=== PATIENT | female | born 1935 | race Caucasian/White ===

== ENCOUNTER 2020-03-25 09:58 | Inpatient (IN) | payer MEDICARE ==
[~2020-03-25] VITALS: Ht 162.6 cm; Wt 104.3 kg
[2020-03-25 10:31] LABS: BASOPHILS % 0.2 % (0.0-1.0); EOSINOPHILS % 0.1 % (0.0-6.0); HEMATOCRIT 40.2 % (34.2-44.1); LYMPHOCYTES # (AUTO) 0.7 (1.0-3.2); LYMPHOCYTES % 6.7 % (18.0-39.1); MEAN CORPUSCULAR HEMOGLOBIN 30.4 pg (28-32); MEAN CORPUSCULAR HGB CONC 34.8 g/dL (31-35); MEAN CORPUSCULAR VOLUME 87.2 fL (81-99); MONOCYTES # (AUTO) 0.6 (0.2-0.8); MONOCYTES % 5.8 % (4.4-11.3); NEUTROPHILS # (AUTO) 8.9 (2.1-6.9); NEUTROPHILS % 86.2 % (38.7-80.0); PLATELET COUNT 387 x10e3/uL (140-360); RED BLOOD COUNT 4.61 x10e6/uL (3.6-5.1); RED CELL DISTRIBUTION WIDTH 13.6 % (11.7-14.4)
[2020-03-25 10:56] LABS: INR 0.94
[2020-03-25 10:57] LABS: PARTIAL THROMBOPLASTIN TIME 31.1 seconds (23.8-35.5)
[2020-03-25 11:06] LABS: ALBUMIN 2.3 g/dL (3.5-5.0); ALBUMIN/GLOBULIN RATIO 0.5 (0.8-2.0); ANION GAP 17.8 mmol/L (8-16); CALCIUM 8.7 mg/dL (8.4-10.2); CREATININE, SERUM 0.94 mg/dL (0.57-1.11); MAGNESIUM 1.7 MG/DL (1.3-2.1); POTASSIUM 4.8 mmol/L (3.5-5.1)
[2020-03-25 11:15] LABS: CREATINE KINASE MB 4.7 ng/mL (0-5.0)
[2020-03-25] MEDS ORDERED: SODIUM CHLORIDE 0.9% 500ML 500 ML IV ONE (11:15)
[2020-03-25] MEDS ORDERED: DEXAMETHASONE SOD PHOS 10 MG/1 ML VIAL ONE (11:18)
[2020-03-25] MEDS: DEXAMETHASONE SOD PHOS 10 MG/1 ML VIAL IV SCH (11:29)
[2020-03-25] MEDS: CEFTRIAXONE SOD 1 GM/NS 50 ML 50 ML IV SCH (11:33)
[2020-03-25] MEDS: AZITHROMYCIN 500MG/NS 250 ML 250 ML IV SCH (11:36)
[2020-03-25] MEDS ORDERED: DEXTROSE 50% SYRINGE 50 ML IV PRN (11:45)
[2020-03-25] MEDS ORDERED: ONDANSETRON HCL INJ 2MG/ML 2ML 2 MG/ML VIAL IV PRN (13:15)
[2020-03-25] MEDS ORDERED: REMDESIVIR 200MG/NS 100ML 200 MG in SODIUM CHLORIDE 0.9% 100 ML 100 ML IV ONE (14:00)
[2020-03-25 14:22] LABS: CLARITY,URINE SL CLOUDY (CLEAR); COLOR,URINE YELLOW (YELLOW); KETONES,URINE NEGATIVE (NEGATIVE); LEUKOCYTE ESTERASE ,URINE NEGATIVE (NEGATIVE); NITRITE,URINE NEGATIVE (NEGATIVE); PROTEIN,URINE DIPSTICK 2+ (NEGATIVE); URINE UROBILINOGEN 0.2 mg/dL (0.2 - 1)
[2020-03-25 14:34] LABS: BACTERIA,URINE RARE /HPF; EPITHELIAL CELLS,URINE FEW /LPF
[2020-03-25] MEDS ORDERED: FUROSEMIDE INJ 10 MG/ML 4 ML VIAL IV ONE (14:45)
[2020-03-25 15:25] LABS: THYROID STIMULATING HORMONE 0.902 uIU/mL (0.350-4.940)
[2020-03-25] MEDS: INSULIN LISPRO 100 UNIT/1 ML 3ML VIAL SQ SCH ×2 (15:47→22:42)
[2020-03-25] MEDS: SODIUM BICARBONATE 650 MG TAB PO SCH (15:54)
[2020-03-25] MEDS: ENOXAPARIN SOD INJ 40 MG/0.4 ML SYR SC SCH (15:54)
[2020-03-25 19:08] LABS: ALANINE AMINOTRANSFERASE 15 IU/L (0-55); ALBUMIN/GLOBULIN RATIO 0.4 (0.8-2.0); ALKALINE PHOSPHATASE 80 IU/L (40-150); ANION GAP 15.7 mmol/L (8-16); BLOOD UREA NITROGEN 9 mg/dL (7-26); BUN/CREATININE RATIO 11 (6-25); CALCIUM 8.5 mg/dL (8.4-10.2); CARBON DIOXIDE 19 mmol/L (22-29); CHLORIDE 95 mmol/L (98-107); CREATININE, SERUM 0.83 mg/dL (0.57-1.11); EST GLOMERULAR FILTRATION RATE > 60 ML/MIN (60-); GLUCOSE 238 mg/dL (74-118); POTASSIUM 4.7 mmol/L (3.5-5.1); SODIUM 125 mmol/L (136-145)
[2020-03-25 19:30] LABS: CREATINE KINASE MB 4.8 ng/mL (0-5.0)
[2020-03-25] MEDS ORDERED: ZOLPIDEM TARTRATE 5 MG TAB PO PRN (21:00)
[2020-03-26] MEDS: ACETAMINOPHEN 325 MG TAB PO PRN (01:22)
[2020-03-26] MEDS: HYDROCODONE/CHLORPHENIRAMINE 5 ML LIQCR PO PRN (01:22)
[2020-03-26] MEDS ORDERED: HYDROCODONE/CHLORPHENIRAMINE 5 ML LIQCR ONE (01:24)
[2020-03-26 05:53] LABS: BASOPHILS % 0.1 % (0.0-1.0); HEMATOCRIT 37.3 % (34.2-44.1); HEMOGLOBIN 12.9 g/dL (12.0-16.0); LYMPHOCYTES # (AUTO) 0.7 (1.0-3.2); LYMPHOCYTES % 9.6 % (18.0-39.1); MEAN CORPUSCULAR HEMOGLOBIN 30.4 pg (28-32); MEAN CORPUSCULAR HGB CONC 34.6 g/dL (31-35); MEAN CORPUSCULAR VOLUME 87.8 fL (81-99); MONOCYTES # (AUTO) 0.5 (0.2-0.8); MONOCYTES % 6.2 % (4.4-11.3); NEUTROPHILS # (AUTO) 6.3 (2.1-6.9); NEUTROPHILS % 83.2 % (38.7-80.0); PLATELET COUNT 410 x10e3/uL (140-360); RED BLOOD COUNT 4.25 x10e6/uL (3.6-5.1); RED CELL DISTRIBUTION WIDTH 13.7 % (11.7-14.4)
[2020-03-26 06:28] LABS: ALANINE AMINOTRANSFERASE 16 IU/L (0-55); ALBUMIN/GLOBULIN RATIO 0.5 (0.8-2.0); ALKALINE PHOSPHATASE 83 IU/L (40-150); ANION GAP 13.5 mmol/L (8-16); BLOOD UREA NITROGEN 14 mg/dL (7-26); BUN/CREATININE RATIO 17 (6-25); CALCIUM 8.8 mg/dL (8.4-10.2); CARBON DIOXIDE 21 mmol/L (22-29); CHLORIDE 98 mmol/L (98-107); CREATININE, SERUM 0.84 mg/dL (0.57-1.11); EST GLOMERULAR FILTRATION RATE > 60 ML/MIN (60-); GLUCOSE 125 mg/dL (74-118); POTASSIUM 4.5 mmol/L (3.5-5.1); SODIUM 128 mmol/L (136-145)
[2020-03-26 06:56] LABS: CREATINE KINASE MB 3.1 ng/mL (0-5.0)
[2020-03-26] MEDS: INSULIN LISPRO 100 UNIT/1 ML 3ML VIAL SQ SCH ×4 (07:30→21:57)
[2020-03-26 07:38] LABS: LYMPHOCYTES % (MANUAL) 6 % (19-48); MONOCYTES % (MANUAL) 3 % (3.4-9.0); NEUTROPHILS % (MANUAL) 91 % (40-74); PLATELET ESTIMATE SLIGHTLY INCREASED; PLATELET MORPHOLOGY COMMENT NORMAL; RBC MORPHOLOGY COMMENT NORMAL
[2020-03-26] MEDS ORDERED: REMDESIVIR 100MG/NS 100ML 100 MG IV SCH ×3 (07:45→14:00)
[2020-03-26] MEDS: ZINC SULFATE 220 MG CAP PO SCH (08:38)
[2020-03-26] MEDS: ASCORBIC ACID 500 MG TAB PO SCH (08:38)
[2020-03-26] MEDS: SODIUM BICARBONATE 650 MG TAB PO SCH ×2 (08:38→17:42)
[2020-03-26] MEDS: CHOLECALCIFEROL 400 UNIT TAB PO SCH (10:00)
[2020-03-26] MEDS: CEFTRIAXONE SOD 1 GM/NS 50 ML 50 ML IV SCH (10:08)
[2020-03-26] MEDS: DEXAMETHASONE SOD PHOS 10 MG/1 ML VIAL IV SCH (10:08)
[2020-03-26] MEDS: AZITHROMYCIN 500MG/NS 250 ML 250 ML IV SCH (11:02)
[2020-03-26] MEDS ORDERED: HYDRALAZINE HCL 20 MG/ML VIAL IV PRN (12:30)
[2020-03-26] MEDS: REMDESIVIR 100MG/NS 100ML 100 MG IV SCH (14:07)
[2020-03-26] MEDS: FAMOTIDINE 20 MG TAB PO SCH (15:50)
[2020-03-26] MEDS: ENOXAPARIN SOD INJ 40 MG/0.4 ML SYR SC SCH (17:42)
[2020-03-26 23:00] VITALS: BP 144/52
[2020-03-26 23:21] VITALS: BP 144/52
[2020-03-26 23:22] VITALS: BP 144/52
[2020-03-27 04:58] VITALS: BP 155/73
[2020-03-27 05:17] LABS: BASOPHILS % 0.2 % (0.0-1.0); HEMATOCRIT 37.8 % (34.2-44.1); HEMOGLOBIN 12.9 g/dL (12.0-16.0); LYMPHOCYTES # (AUTO) 0.7 (1.0-3.2); LYMPHOCYTES % 5.7 % (18.0-39.1); MEAN CORPUSCULAR HEMOGLOBIN 30.1 pg (28-32); MEAN CORPUSCULAR HGB CONC 34.1 g/dL (31-35); MEAN CORPUSCULAR VOLUME 88.3 fL (81-99); MONOCYTES # (AUTO) 0.9 (0.2-0.8); MONOCYTES % 7.3 % (4.4-11.3); NEUTROPHILS # (AUTO) 10.6 (2.1-6.9); NEUTROPHILS % 85.8 % (38.7-80.0); PLATELET COUNT 421 x10e3/uL (140-360); RED BLOOD COUNT 4.28 x10e6/uL (3.6-5.1); RED CELL DISTRIBUTION WIDTH 13.6 % (11.7-14.4)
[2020-03-27 05:48] LABS: ALANINE AMINOTRANSFERASE 16 IU/L (0-55); ALBUMIN/GLOBULIN RATIO 0.5 (0.8-2.0); ALKALINE PHOSPHATASE 85 IU/L (40-150); BLOOD UREA NITROGEN 17 mg/dL (7-26); BUN/CREATININE RATIO 20 (6-25); CALCIUM 8.5 mg/dL (8.4-10.2); CARBON DIOXIDE 19 mmol/L (22-29); CHLORIDE 96 mmol/L (98-107); CREATININE, SERUM 0.83 mg/dL (0.57-1.11); EST GLOMERULAR FILTRATION RATE > 60 ML/MIN (60-); GLUCOSE 118 mg/dL (74-118); SODIUM 126 mmol/L (136-145)
[2020-03-27] MEDS: INSULIN LISPRO 100 UNIT/1 ML 3ML VIAL SQ SCH ×4 (06:57→20:11)
[2020-03-27 08:00] VITALS: BP 155/69
[2020-03-27 09:45] VITALS: BP 155/69
[2020-03-27] MEDS: ZINC SULFATE 220 MG CAP PO SCH (10:02)
[2020-03-27] MEDS: DEXAMETHASONE SOD PHOS 10 MG/1 ML VIAL IV SCH (10:02)
[2020-03-27] MEDS: FAMOTIDINE 20 MG TAB PO SCH ×2 (10:02→17:03)
[2020-03-27] MEDS: CHOLECALCIFEROL 400 UNIT TAB PO SCH (10:02)
[2020-03-27] MEDS: ASCORBIC ACID 500 MG TAB PO SCH (10:02)
[2020-03-27] MEDS: CEFTRIAXONE SOD 1 GM/NS 50 ML 50 ML IV SCH (10:02)
[2020-03-27] MEDS: SODIUM BICARBONATE 650 MG TAB PO SCH (10:02)
[2020-03-27] MEDS: AZITHROMYCIN 500MG/NS 250 ML 250 ML IV SCH (10:55)
[2020-03-27] MEDS: REMDESIVIR 100MG/NS 100ML 100 MG IV SCH (15:07)
[2020-03-27] MEDS: SODIUM CHLORIDE 1 GM TAB PO SCH (17:03)
[2020-03-27] MEDS: ENOXAPARIN SOD INJ 40 MG/0.4 ML SYR SC SCH (17:03)
[2020-03-27 17:11] VITALS: BP_SYST 156; BP_SYST 166; BP_DIAS 75
[2020-03-27 19:00] VITALS: BP 176/57
[2020-03-27 23:00] VITALS: BP 151/61
[2020-03-28] VITALS (7 sets, daily range): BP systolic 140–148; BP diastolic 54–71
[2020-03-28 04:55] LABS: BASOPHILS % 0.1 % (0.0-1.0); HEMATOCRIT 37.1 % (34.2-44.1); HEMOGLOBIN 12.6 g/dL (12.0-16.0); LYMPHOCYTES # (AUTO) 0.7 (1.0-3.2); LYMPHOCYTES % 6.8 % (18.0-39.1); MEAN CORPUSCULAR HEMOGLOBIN 30.6 pg (28-32); MONOCYTES # (AUTO) 0.8 (0.2-0.8); MONOCYTES % 7.8 % (4.4-11.3); NEUTROPHILS # (AUTO) 8.6 (2.1-6.9); NEUTROPHILS % 84.4 % (38.7-80.0); PLATELET COUNT 378 x10e3/uL (140-360); RED BLOOD COUNT 4.12 x10e6/uL (3.6-5.1); RED CELL DISTRIBUTION WIDTH 13.7 % (11.7-14.4)
[2020-03-28 05:14] LABS: ALANINE AMINOTRANSFERASE 13 IU/L (0-55); ALBUMIN/GLOBULIN RATIO 0.5 (0.8-2.0); ALKALINE PHOSPHATASE 82 IU/L (40-150); ANION GAP 13.3 mmol/L (8-16); BLOOD UREA NITROGEN 17 mg/dL (7-26); BUN/CREATININE RATIO 22 (6-25); CALCIUM 8.2 mg/dL (8.4-10.2); CARBON DIOXIDE 21 mmol/L (22-29); CHLORIDE 101 mmol/L (98-107); CREATININE, SERUM 0.77 mg/dL (0.57-1.11); EST GLOMERULAR FILTRATION RATE > 60 ML/MIN (60-); GLUCOSE 77 mg/dL (74-118); POTASSIUM 4.3 mmol/L (3.5-5.1); SODIUM 131 mmol/L (136-145)
[2020-03-28] MEDS: INSULIN LISPRO 100 UNIT/1 ML 3ML VIAL SQ SCH ×4 (07:30→21:00)
[2020-03-28] MEDS: FAMOTIDINE 20 MG TAB PO SCH ×3 (07:30→15:33)
[2020-03-28] MEDS: SODIUM CHLORIDE 1 GM TAB PO SCH ×2 (15:13→17:25)
[2020-03-28] MEDS: ZINC SULFATE 220 MG CAP PO SCH (15:13)
[2020-03-28] MEDS: ASCORBIC ACID 500 MG TAB PO SCH (15:14)
[2020-03-28] MEDS: METOPROLOL SUCCINATE 25 MG TAB XL PO SCH (15:15)
[2020-03-28] MEDS: CHOLECALCIFEROL 400 UNIT TAB PO SCH (15:16)
[2020-03-28] MEDS: DEXAMETHASONE SOD PHOS 10 MG/1 ML VIAL IV SCH (15:20)
[2020-03-28] MEDS: CEFTRIAXONE SOD 1 GM/NS 50 ML 50 ML IV SCH (15:20)
[2020-03-28] MEDS ORDERED: SODIUM CHLORIDE 0.9% 250ML 250 ML ONE (15:50)
[2020-03-28] MEDS: AZITHROMYCIN 500MG/NS 250 ML 250 ML IV SCH (15:54)
[2020-03-28] MEDS: ENOXAPARIN SOD INJ 40 MG/0.4 ML SYR SC SCH (17:25)
[2020-03-28] MEDS: REMDESIVIR 100MG/NS 100ML 100 MG IV SCH (17:34)
[2020-03-29] VITALS (8 sets, daily range): BP systolic 136–178; BP diastolic 33–74
[2020-03-29 06:15] LABS: BASOPHILS % 0.1 % (0.0-1.0); HEMATOCRIT 35.3 % (34.2-44.1); HEMOGLOBIN 11.9 g/dL (12.0-16.0); LYMPHOCYTES # (AUTO) 0.7 (1.0-3.2); LYMPHOCYTES % 5.5 % (18.0-39.1); MEAN CORPUSCULAR HEMOGLOBIN 30.1 pg (28-32); MEAN CORPUSCULAR HGB CONC 33.7 g/dL (31-35); MEAN CORPUSCULAR VOLUME 89.4 fL (81-99); MONOCYTES # (AUTO) 0.3 (0.2-0.8); MONOCYTES % 2.7 % (4.4-11.3); NEUTROPHILS # (AUTO) 10.9 (2.1-6.9); NEUTROPHILS % 90.5 % (38.7-80.0); PLATELET COUNT 202 x10e3/uL (140-360); RED BLOOD COUNT 3.95 x10e6/uL (3.6-5.1); RED CELL DISTRIBUTION WIDTH 13.9 % (11.7-14.4)
[2020-03-29 06:59] LABS: ANION GAP 11.1 mmol/L (8-16); BLOOD UREA NITROGEN 17 mg/dL (7-26); BUN/CREATININE RATIO 21 (6-25); CARBON DIOXIDE 23 mmol/L (22-29); CHLORIDE 99 mmol/L (98-107); EST GLOMERULAR FILTRATION RATE > 60 ML/MIN (60-); POTASSIUM 4.1 mmol/L (3.5-5.1); SODIUM 129 mmol/L (136-145)
[2020-03-29 07:07] LABS: GLUCOSE 32 mg/dL (74-118)
[2020-03-29] MEDS: INSULIN LISPRO 100 UNIT/1 ML 3ML VIAL SQ SCH ×4 (07:30→21:00)
[2020-03-29] MEDS: FAMOTIDINE 20 MG TAB PO SCH ×2 (08:15→17:48)
[2020-03-29] MEDS: ASCORBIC ACID 500 MG TAB PO SCH (10:32)
[2020-03-29] MEDS: CHOLECALCIFEROL 400 UNIT TAB PO SCH (10:32)
[2020-03-29] MEDS: METOPROLOL SUCCINATE 25 MG TAB XL PO SCH ×2 (10:33→23:57)
[2020-03-29] MEDS: SODIUM CHLORIDE 1 GM TAB PO SCH ×2 (10:35→17:42)
[2020-03-29] MEDS: ZINC SULFATE 220 MG CAP PO SCH (10:35)
[2020-03-29] MEDS: DEXAMETHASONE SOD PHOS 10 MG/1 ML VIAL IV SCH (11:15)
[2020-03-29] MEDS: CEFTRIAXONE SOD 1 GM/NS 50 ML 50 ML IV SCH (11:15)
[2020-03-29] MEDS: ENOXAPARIN SOD INJ 40 MG/0.4 ML SYR SC SCH (17:42)
[2020-03-29] MEDS: REMDESIVIR 100MG/NS 100ML 100 MG IV SCH (17:48)
[2020-03-29] MEDS: AZITHROMYCIN 500MG/NS 250 ML 250 ML IV SCH (17:48)
[2020-03-30] VITALS (9 sets, daily range): BP systolic 127–173; BP diastolic 56–83
[2020-03-30] MEDS: ACETAMINOPHEN 325 MG TAB PO PRN ×2 (00:42→06:44)
[2020-03-30 06:09] LABS: BASOPHILS % 0.2 % (0.0-1.0); EOSINOPHILS % 0.2 % (0.0-6.0); HEMATOCRIT 35.9 % (34.2-44.1); HEMOGLOBIN 12.2 g/dL (12.0-16.0); LYMPHOCYTES # (AUTO) 0.8 (1.0-3.2); LYMPHOCYTES % 5.7 % (18.0-39.1); MEAN CORPUSCULAR HEMOGLOBIN 30.7 pg (28-32); MEAN CORPUSCULAR VOLUME 90.2 fL (81-99); MONOCYTES # (AUTO) 0.5 (0.2-0.8); MONOCYTES % 3.5 % (4.4-11.3); NEUTROPHILS # (AUTO) 12.2 (2.1-6.9); NEUTROPHILS % 89.6 % (38.7-80.0); PLATELET COUNT 156 x10e3/uL (140-360); RED BLOOD COUNT 3.98 x10e6/uL (3.6-5.1); RED CELL DISTRIBUTION WIDTH 13.8 % (11.7-14.4)
[2020-03-30 06:30] LABS: ALANINE AMINOTRANSFERASE 10 IU/L (0-55); ALBUMIN 1.7 g/dL (3.5-5.0); ALBUMIN/GLOBULIN RATIO 0.4 (0.8-2.0); ALKALINE PHOSPHATASE 78 IU/L (40-150); ANION GAP 11.3 mmol/L (8-16); BLOOD UREA NITROGEN 20 mg/dL (7-26); BUN/CREATININE RATIO 27 (6-25); CARBON DIOXIDE 23 mmol/L (22-29); CHLORIDE 102 mmol/L (98-107); CREATININE, SERUM 0.75 mg/dL (0.57-1.11); EST GLOMERULAR FILTRATION RATE > 60 ML/MIN (60-); GLUCOSE 69 mg/dL (74-118); POTASSIUM 4.3 mmol/L (3.5-5.1); SODIUM 132 mmol/L (136-145)
[2020-03-30] MEDS: INSULIN LISPRO 100 UNIT/1 ML 3ML VIAL SQ SCH (07:30)
[2020-03-30] MEDS: ASCORBIC ACID 500 MG TAB PO SCH (08:11)
[2020-03-30] MEDS: FAMOTIDINE 20 MG TAB PO SCH ×2 (08:11→17:25)
[2020-03-30] MEDS: SODIUM CHLORIDE 1 GM TAB PO SCH ×2 (08:11→17:25)
[2020-03-30] MEDS: METOPROLOL SUCCINATE 25 MG TAB XL PO SCH (08:11)
[2020-03-30] MEDS: ZINC SULFATE 220 MG CAP PO SCH (08:11)
[2020-03-30] MEDS: CHOLECALCIFEROL 400 UNIT TAB PO SCH (08:11)
[2020-03-30] MEDS: CEFTRIAXONE SOD 1 GM/NS 50 ML 50 ML IV SCH (11:22)
[2020-03-30] MEDS: DEXAMETHASONE SOD PHOS 10 MG/1 ML VIAL IV SCH (11:22)
[2020-03-30] MEDS: AZITHROMYCIN 500MG/NS 250 ML 250 ML IV SCH (11:57)
[2020-03-30] MEDS: ENOXAPARIN SOD INJ 40 MG/0.4 ML SYR SC SCH (17:25)
[2020-03-30] MEDS: HYDROCODONE/CHLORPHENIRAMINE 5 ML LIQCR PO PRN (23:57)
[2020-03-31] VITALS (7 sets, daily range): BP systolic 121–171; BP diastolic 70–82
[2020-03-31 07:21] LABS: BASOPHILS % 0.2 % (0.0-1.0); EOSINOPHILS % 0.1 % (0.0-6.0); HEMATOCRIT 38.4 % (34.2-44.1); HEMOGLOBIN 13.4 g/dL (12.0-16.0); LYMPHOCYTES # (AUTO) 0.6 (1.0-3.2); LYMPHOCYTES % 3.2 % (18.0-39.1); MEAN CORPUSCULAR HEMOGLOBIN 30.5 pg (28-32); MEAN CORPUSCULAR HGB CONC 34.9 g/dL (31-35); MEAN CORPUSCULAR VOLUME 87.5 fL (81-99); MONOCYTES % 5.5 % (4.4-11.3); NEUTROPHILS # (AUTO) 15.7 (2.1-6.9); NEUTROPHILS % 90.1 % (38.7-80.0); PLATELET COUNT 163 x10e3/uL (140-360); RED BLOOD COUNT 4.39 x10e6/uL (3.6-5.1); RED CELL DISTRIBUTION WIDTH 13.5 % (11.7-14.4)
[2020-03-31 07:58] LABS: ALANINE AMINOTRANSFERASE 10 IU/L (0-55); ALBUMIN 1.8 g/dL (3.5-5.0); ALBUMIN/GLOBULIN RATIO 0.4 (0.8-2.0); ALKALINE PHOSPHATASE 96 IU/L (40-150); ANION GAP 13.8 mmol/L (8-16); BLOOD UREA NITROGEN 19 mg/dL (7-26); BUN/CREATININE RATIO 24 (6-25); CALCIUM 8.4 mg/dL (8.4-10.2); CARBON DIOXIDE 21 mmol/L (22-29); CHLORIDE 96 mmol/L (98-107); EST GLOMERULAR FILTRATION RATE > 60 ML/MIN (60-); GLUCOSE 213 mg/dL (74-118); POTASSIUM 4.8 mmol/L (3.5-5.1); SODIUM 126 mmol/L (136-145)
[2020-03-31 08:08] LABS: LYMPHOCYTES % (MANUAL) 2 % (19-48); METAMYELOCYTES % (MANUAL) 1 % (0-0); MONOCYTES % (MANUAL) 5 % (3.4-9.0); NEUTROPHILS % (MANUAL) 90 % (40-74)
[2020-03-31 08:09] LABS: PLATELET ESTIMATE ADEQUATE; PLATELET MORPHOLOGY COMMENT NORMAL; RBC MORPHOLOGY COMMENT NORMAL
[2020-03-31] MEDS: ASCORBIC ACID 500 MG TAB PO SCH (08:54)
[2020-03-31] MEDS: CHOLECALCIFEROL 400 UNIT TAB PO SCH (08:54)
[2020-03-31] MEDS: FAMOTIDINE 20 MG TAB PO SCH ×2 (08:54→16:26)
[2020-03-31] MEDS: ZINC SULFATE 220 MG CAP PO SCH (08:54)
[2020-03-31] MEDS: SODIUM CHLORIDE 1 GM TAB PO SCH ×2 (08:54→16:26)
[2020-03-31] MEDS: METOPROLOL SUCCINATE 25 MG TAB XL PO SCH ×2 (09:10→20:35)
[2020-03-31] MEDS: DEXAMETHASONE SOD PHOS INJ 4 MG/ML VIAL IV SCH (09:28)
[2020-03-31] MEDS: CEFTRIAXONE SOD 1 GM/NS 50 ML 50 ML IV SCH (09:29)
[2020-03-31] MEDS: ACETAMINOPHEN 325 MG TAB PO PRN ×3 (10:12→20:12)
[2020-03-31] MEDS: AZITHROMYCIN 500MG/NS 250 ML 250 ML IV SCH (10:40)
[2020-03-31] MEDS: HYDROCODONE/CHLORPHENIRAMINE 5 ML LIQCR PO PRN (15:00)
[2020-03-31] MEDS: ENOXAPARIN SOD INJ 40 MG/0.4 ML SYR SC SCH (16:26)
[2020-04-01] VITALS (11 sets, daily range): BP systolic 110–160; BP diastolic 59–92
[2020-04-01] MEDS ORDERED: DEXTROSE 50% SYRINGE 50 ML IV PRN ×2 (00:45)
[2020-04-01] MEDS: INSULIN REGULAR, HUMAN 100 UNIT/1 ML 3ML VIAL SQ SCH ×4 (01:04→21:11)
[2020-04-01] MEDS ORDERED: LORAZEPAM INJ 2 MG/ML VIAL IV ONE (03:15)
[2020-04-01 05:13] LABS: BASOPHILS % 0.1 % (0.0-1.0); HEMATOCRIT 36.2 % (34.2-44.1); HEMOGLOBIN 12.3 g/dL (12.0-16.0); LYMPHOCYTES # (AUTO) 0.5 (1.0-3.2); LYMPHOCYTES % 3.8 % (18.0-39.1); MEAN CORPUSCULAR HEMOGLOBIN 29.9 pg (28-32); MEAN CORPUSCULAR VOLUME 88.1 fL (81-99); MONOCYTES # (AUTO) 0.9 (0.2-0.8); MONOCYTES % 6.3 % (4.4-11.3); NEUTROPHILS # (AUTO) 12.8 (2.1-6.9); NEUTROPHILS % 89.2 % (38.7-80.0); PLATELET COUNT 164 x10e3/uL (140-360); RED BLOOD COUNT 4.11 x10e6/uL (3.6-5.1); RED CELL DISTRIBUTION WIDTH 13.5 % (11.7-14.4)
[2020-04-01 05:29] LABS: ALANINE AMINOTRANSFERASE 10 IU/L (0-55); ALBUMIN 1.7 g/dL (3.5-5.0); ALBUMIN/GLOBULIN RATIO 0.4 (0.8-2.0); ALKALINE PHOSPHATASE 106 IU/L (40-150); ANION GAP 12.8 mmol/L (8-16); BLOOD UREA NITROGEN 24 mg/dL (7-26); BUN/CREATININE RATIO 29 (6-25); CALCIUM 8.1 mg/dL (8.4-10.2); CARBON DIOXIDE 23 mmol/L (22-29); CHLORIDE 95 mmol/L (98-107); CREATININE, SERUM 0.83 mg/dL (0.57-1.11); EST GLOMERULAR FILTRATION RATE > 60 ML/MIN (60-); GLUCOSE 199 mg/dL (74-118); POTASSIUM 4.8 mmol/L (3.5-5.1); SODIUM 126 mmol/L (136-145)
[2020-04-01 06:08] LABS: MAGNESIUM 2.1 MG/DL (1.3-2.1); PHOSPHORUS 3.3 MG/DL (2.3-4.7)
[2020-04-01] MEDS: FAMOTIDINE 20 MG TAB PO SCH ×2 (07:30→17:43)
[2020-04-01] MEDS: CEFTRIAXONE SOD 1 GM/NS 50 ML 50 ML IV SCH (10:11)
[2020-04-01] MEDS: DEXAMETHASONE SOD PHOS INJ 4 MG/ML VIAL IV SCH (10:11)
[2020-04-01] MEDS: HYDROCODONE/CHLORPHENIRAMINE 5 ML LIQCR PO PRN ×2 (10:15→22:06)
[2020-04-01] MEDS: CHOLECALCIFEROL 400 UNIT TAB PO SCH (12:36)
[2020-04-01] MEDS: ASCORBIC ACID 500 MG TAB PO SCH (12:36)
[2020-04-01] MEDS: SODIUM CHLORIDE 1 GM TAB PO SCH ×2 (12:36→17:28)
[2020-04-01] MEDS: ZINC SULFATE 220 MG CAP PO SCH (12:36)
[2020-04-01] MEDS: METOPROLOL SUCCINATE 25 MG TAB XL PO SCH ×2 (12:45→22:05)
[2020-04-01] MEDS: AMLODIPINE BESYLATE 5 MG TAB PO SCH (12:46)
[2020-04-01] MEDS: AZITHROMYCIN 500MG/NS 250 ML 250 ML IV SCH (13:15)
[2020-04-02] VITALS (20 sets, daily range): BP systolic 99–135; BP diastolic 43–78
[2020-04-02 05:49] LABS: BASOPHILS % 0.2 % (0.0-1.0); HEMATOCRIT 36.4 % (34.2-44.1); HEMOGLOBIN 12.5 g/dL (12.0-16.0); LYMPHOCYTES # (AUTO) 0.8 (1.0-3.2); LYMPHOCYTES % 4.8 % (18.0-39.1); MEAN CORPUSCULAR HEMOGLOBIN 30.3 pg (28-32); MEAN CORPUSCULAR HGB CONC 34.3 g/dL (31-35); MEAN CORPUSCULAR VOLUME 88.3 fL (81-99); MONOCYTES # (AUTO) 1.1 (0.2-0.8); MONOCYTES % 6.5 % (4.4-11.3); NEUTROPHILS # (AUTO) 14.4 (2.1-6.9); NEUTROPHILS % 87.7 % (38.7-80.0); PLATELET COUNT 116 x10e3/uL (140-360); RED BLOOD COUNT 4.12 x10e6/uL (3.6-5.1); RED CELL DISTRIBUTION WIDTH 13.6 % (11.7-14.4)
[2020-04-02 06:09] LABS: ALBUMIN 1.8 g/dL (3.5-5.0); ALBUMIN/GLOBULIN RATIO 0.4 (0.8-2.0); ANION GAP 14.1 mmol/L (8-16); CALCIUM 8.3 mg/dL (8.4-10.2); CREATININE, SERUM 0.9 mg/dL (0.57-1.11); POTASSIUM 5.1 mmol/L (3.5-5.1)
[2020-04-02] MEDS ORDERED: HYDROCODONE/CHLORPHENIRAMINE 5 ML LIQCR PO PRN (07:00)
[2020-04-02] MEDS: AMLODIPINE BESYLATE 5 MG TAB PO SCH (08:00)
[2020-04-02] MEDS: ASCORBIC ACID 500 MG TAB PO SCH (08:00)
[2020-04-02] MEDS: METOPROLOL SUCCINATE 25 MG TAB XL PO SCH (08:00)
[2020-04-02] MEDS: SODIUM CHLORIDE 1 GM TAB PO SCH ×2 (08:00→18:19)
[2020-04-02] MEDS: DEXAMETHASONE SOD PHOS INJ 4 MG/ML VIAL IV SCH (08:00)
[2020-04-02] MEDS: INSULIN REGULAR, HUMAN 100 UNIT/1 ML 3ML VIAL SQ SCH ×3 (08:00→18:43)
[2020-04-02] MEDS: FAMOTIDINE 20 MG TAB PO SCH ×2 (08:00→18:19)
[2020-04-02] MEDS: MIDAZOLAM HCL 5MG/ML 10ML VIAL 100 ML IV PRN (09:59)
[2020-04-02] MEDS: FENTANYL 2000MCG/NS 250 250 ML IV PRN (09:59)
[2020-04-02] MEDS: ZINC SULFATE 220 MG CAP PO SCH (11:51)
[2020-04-02] MEDS: CEFTRIAXONE SOD 1 GM/NS 50 ML 50 ML IV SCH (11:51)
[2020-04-02] MEDS: SODIUM CHLORIDE 0.9% 250ML IRRIG IR SCH ×4 (11:52→21:41)
[2020-04-02] MEDS ORDERED: SODIUM CHLORIDE 0.9% 250ML 250 ML ONE (14:31)
[2020-04-02] MEDS ORDERED: SODIUM CHLORIDE 0.9% 1000ML 1,000 ML ONE (15:05)
[2020-04-02 15:56] LABS: ABG HCO3 23 mmol/L (22-26); ABG PCO2 42 mmHg (35-45); ABG PH 7.35 (7.35-7.45); ABG PO2 60 mmHg (80-105); ABG TCO2 24
[2020-04-02] MEDS: AZITHROMYCIN 500MG/NS 250 ML 250 ML IV SCH (16:10)
[2020-04-02] MEDS ORDERED: SUCCINYLCHOLINE CHLORIDE 20 MG/ML 10ML VIAL ONE (17:04)
[2020-04-02] MEDS ORDERED: ETOMIDATE 2 MG/ML 10 ML INJ IV ONE (17:04)
[2020-04-02] MEDS ORDERED: MIDAZOLAM HCL 2 MG/2 ML VIAL ONE (17:04)
[2020-04-02] MEDS ORDERED: WATER STERILE 10 ML VIAL ONE (17:04)
[2020-04-02] MEDS ORDERED: VECURONIUM BROMIDE FOR INJ 20 MG VIAL ONE (17:04)
[2020-04-02] MEDS: ENOXAPARIN INJ 80 MG/0.8 ML SYR SC SCH (18:19)
[2020-04-02] MEDS: CHOLECALCIFEROL 400 UNIT TAB PO SCH (18:23)
[2020-04-02] MEDS ORDERED: HEPARIN SOD/SOD CHLORIDE 1,000 ML ONE (20:03)
[2020-04-03] VITALS (20 sets, daily range): BP systolic 96–165; BP diastolic 41–72
[2020-04-03] MEDS: INSULIN REGULAR, HUMAN 100 UNIT/1 ML 3ML VIAL SQ SCH ×4 (00:45→17:02)
[2020-04-03] MEDS: SODIUM CHLORIDE 0.9% 250ML IRRIG IR SCH ×6 (02:00→21:00)
[2020-04-03 04:57] LABS: BASOPHILS % 0.1 % (0.0-1.0); HEMATOCRIT 35.1 % (34.2-44.1); HEMOGLOBIN 11.5 g/dL (12.0-16.0); LYMPHOCYTES # (AUTO) 0.7 (1.0-3.2); LYMPHOCYTES % 5.1 % (18.0-39.1); MEAN CORPUSCULAR HGB CONC 32.8 g/dL (31-35); MEAN CORPUSCULAR VOLUME 91.6 fL (81-99); MONOCYTES # (AUTO) 0.8 (0.2-0.8); MONOCYTES % 6.1 % (4.4-11.3); NEUTROPHILS # (AUTO) 12.2 (2.1-6.9); NEUTROPHILS % 87.8 % (38.7-80.0); PLATELET COUNT 91 x10e3/uL (140-360); RED BLOOD COUNT 3.83 x10e6/uL (3.6-5.1); RED CELL DISTRIBUTION WIDTH 13.8 % (11.7-14.4)
[2020-04-03 05:27] LABS: ALBUMIN 1.7 g/dL (3.5-5.0); ALBUMIN/GLOBULIN RATIO 0.4 (0.8-2.0); ANION GAP 13.4 mmol/L (8-16); CALCIUM 8.1 mg/dL (8.4-10.2); CREATININE, SERUM 1.13 mg/dL (0.57-1.11); POTASSIUM 5.4 mmol/L (3.5-5.1)
[2020-04-03 05:49] LABS: INR 1.26; PROTHROMBIN TIME 16.6 seconds (11.9-14.5)
[2020-04-03 05:50] LABS: PARTIAL THROMBOPLASTIN TIME 41.8 seconds (23.8-35.5)
[2020-04-03] MEDS: ENOXAPARIN INJ 80 MG/0.8 ML SYR SC SCH ×2 (06:46→17:01)
[2020-04-03] MEDS: AMLODIPINE BESYLATE 5 MG TAB PO SCH (08:15)
[2020-04-03] MEDS: ASCORBIC ACID 500 MG TAB PO SCH (08:15)
[2020-04-03] MEDS: SODIUM CHLORIDE 1 GM TAB PO SCH ×2 (08:15→17:01)
[2020-04-03] MEDS: FAMOTIDINE 20 MG TAB PO SCH ×2 (08:15→17:01)
[2020-04-03] MEDS: EYE LUBRICANT OPTH OINT 3.5GM TUBE OP SCH (08:15)
[2020-04-03] MEDS: ZINC SULFATE 220 MG CAP PO SCH (08:16)
[2020-04-03] MEDS: CHOLECALCIFEROL 400 UNIT TAB PO SCH (08:16)
[2020-04-03] MEDS: DEXAMETHASONE SOD PHOS INJ 4 MG/ML VIAL IV SCH (08:45)
[2020-04-03 09:26] LABS: ABG HCO3 22 mmol/L (22-26); ABG PCO2 39 mmHg (35-45); ABG PH 7.36 (7.35-7.45); ABG PO2 66 mmHg (80-105); ABG TCO2 23
[2020-04-03] MEDS: CEFTRIAXONE SOD 1 GM/NS 50 ML 50 ML IV SCH (09:36)
[2020-04-03] MEDS: AZITHROMYCIN 500MG/NS 250 ML 250 ML IV SCH (11:09)
[2020-04-03] MEDS: MIDAZOLAM HCL 5MG/ML 10ML VIAL 100 ML IV PRN (12:05)
[2020-04-03] MEDS: FENTANYL 2000MCG/NS 250 250 ML IV PRN (12:05)
[2020-04-03] MEDS: NOREPINEPHRINE INJ 4MG/4ML 8 MG in DEXTROSE 5% 250ML 250 ML IV PRN (22:42)
[2020-04-03] MEDS ORDERED: NOREPINEPHRINE 8 MG/D5W 250 ML 250 ML ONE (22:48)
[2020-04-04] VITALS (43 sets, daily range): BP systolic 91–144; BP diastolic 44–78
[2020-04-04] MEDS: INSULIN REGULAR, HUMAN 100 UNIT/1 ML 3ML VIAL SQ SCH ×2 (00:11→06:32)
[2020-04-04] MEDS: MIDAZOLAM HCL 5MG/ML 10ML VIAL 100 ML IV PRN ×2 (00:18→09:47)
[2020-04-04] MEDS: SODIUM CHLORIDE 0.9% 250ML IRRIG IR SCH ×6 (01:15→22:02)
[2020-04-04] MEDS ORDERED: SODIUM CHLORIDE 0.9% 1000ML 1,000 ML ONE (01:39)
[2020-04-04 05:10] LABS: BASOPHILS # (AUTO) 0.1 (0.0-0.1); BASOPHILS % 0.3 % (0.0-1.0); HEMATOCRIT 38.7 % (34.2-44.1); HEMOGLOBIN 12.2 g/dL (12.0-16.0); LYMPHOCYTES # (AUTO) 0.5 (1.0-3.2); LYMPHOCYTES % 1.6 % (18.0-39.1); MEAN CORPUSCULAR HEMOGLOBIN 30.4 pg (28-32); MEAN CORPUSCULAR HGB CONC 31.5 g/dL (31-35); MEAN CORPUSCULAR VOLUME 96.5 fL (81-99); MONOCYTES # (AUTO) 2.5 (0.2-0.8); MONOCYTES % 8.5 % (4.4-11.3); NEUTROPHILS # (AUTO) 25.2 (2.1-6.9); NEUTROPHILS % 87.8 % (38.7-80.0); PLATELET COUNT 145 x10e3/uL (140-360); RED BLOOD COUNT 4.01 x10e6/uL (3.6-5.1); RED CELL DISTRIBUTION WIDTH 14.2 % (11.7-14.4)
[2020-04-04 05:31] LABS: ALBUMIN 1.7 g/dL (3.5-5.0); ALBUMIN/GLOBULIN RATIO 0.4 (0.8-2.0); ANION GAP 20.9 mmol/L (8-16); CREATININE, SERUM 1.72 mg/dL (0.57-1.11); POTASSIUM 5.9 mmol/L (3.5-5.1)
[2020-04-04] MEDS ORDERED: FUROSEMIDE INJ 10 MG/ML 4 ML VIAL IV ONE (05:45)
[2020-04-04] MEDS: ENOXAPARIN INJ 80 MG/0.8 ML SYR SC SCH ×2 (06:32→17:00)
[2020-04-04] MEDS: FAMOTIDINE 20 MG TAB PO SCH ×2 (07:30→15:44)
[2020-04-04 08:17] LABS: ABG HCO3 16 mmol/L (22-26); ABG PCO2 41 mmHg (35-45); ABG PO2 89 mmHg (80-105)
[2020-04-04 08:18] LABS: ABG TCO2 17
[2020-04-04] MEDS ORDERED: DEXTROSE 50% SYRINGE 50 ML IV PRN (08:30)
[2020-04-04] MEDS ORDERED: VANCOMYCIN 1GM/NS 250 ML 250 ML IV ONE (08:30)
[2020-04-04] MEDS ORDERED: SODIUM CHLORIDE 0.9% 500ML 500 ML IV ONE (08:30)
[2020-04-04] MEDS ORDERED: INSULIN REGULAR, HUMAN 3ML VL 100 UNIT in SODIUM CHLORIDE 0.45% 100 ML 99 ML IV SCH ×2 (08:30)
[2020-04-04 08:40] LABS: LYMPHOCYTES % (MANUAL) 1 % (19-48); MONOCYTES % (MANUAL) 2 % (3.4-9.0); MYELOCYTES % (MANUAL) 2 % (0-0); NEUTROPHILS % (MANUAL) 91 % (40-74); PROMYELOCYTES % (MANUAL) 4 % (0-0)
[2020-04-04 08:41] LABS: PLATELET ESTIMATE SLIGHTLY DECREASED; PLATELET MORPHOLOGY COMMENT NORMAL; RBC MORPHOLOGY COMMENT NORMAL
[2020-04-04] MEDS ORDERED: NOREPINEPHRINE 8 MG/D5W 250 ML 250 ML ONE (08:41)
[2020-04-04] MEDS ORDERED: LIDOCAINE HCL 2% LOCAL 20 ML VIAL ONE (08:52)
[2020-04-04] MEDS: AMLODIPINE BESYLATE 5 MG TAB PO SCH (09:00)
[2020-04-04] MEDS ORDERED: MEROPENEM 1GRAM 1 GM in SODIUM CHLORIDE 0.9% 100 ML 100 ML IV SCH (09:00)
[2020-04-04] MEDS ORDERED: SODIUM BICARBONATE 8.4% INJ 50 ML SYR IV NR (09:00)
[2020-04-04] MEDS: NOREPINEPHRINE INJ 4MG/4ML 8 MG in DEXTROSE 5% 250ML 250 ML IV PRN ×2 (09:09→17:32)
[2020-04-04] MEDS: INSULIN REGULAR, HUMAN 3ML VL 100 UNIT in SODIUM CHLORIDE 0.9% 100 ML 99 ML IV SCH ×2 (10:10)
[2020-04-04] MEDS: AZITHROMYCIN 500MG/NS 250 ML 250 ML IV SCH (10:45)
[2020-04-04] MEDS: CHOLECALCIFEROL 400 UNIT TAB PO SCH (10:45)
[2020-04-04] MEDS: EYE LUBRICANT OPTH OINT 3.5GM TUBE OP SCH (10:45)
[2020-04-04] MEDS: ZINC SULFATE 50 MG CAP PO SCH (10:45)
[2020-04-04] MEDS: ASCORBIC ACID 500 MG TAB PO SCH (10:45)
[2020-04-04] MEDS: SODIUM CHLORIDE 1 GM TAB PO SCH ×2 (10:45→16:22)
[2020-04-04] MEDS: FENTANYL 2000MCG/NS 250 250 ML IV PRN (12:36)
[2020-04-04] MEDS: MEROPENEM 500MG/ NS 50ML 50 ML IV SCH ×2 (13:04→22:30)
[2020-04-04 13:21] LABS: ABG PCO2 42 mmHg (35-45); ABG PH 7.32 (7.35-7.45); ABG PO2 82 mmHg (80-105)
[2020-04-04 13:22] LABS: ABG HCO3 21 mmol/L (22-26); ABG TCO2 23
[2020-04-04] MEDS: ACETAMINOPHEN 325 MG TAB PO PRN (15:44)
[2020-04-04] MEDS ORDERED: LACTATED RINGER'S 500 ML INJ STA (18:16)
[2020-04-04] MEDS ORDERED: ACETAMINOPHEN 1000 MG/100 ML IV STA (18:16)
[2020-04-04] MEDS ORDERED: ACETAMINOPHEN 1000 MG/100 ML 100 ML IV ONE (19:35)
[2020-04-05] VITALS (45 sets, daily range): BP systolic 91–121; BP diastolic 45–63
[2020-04-05] MEDS ORDERED: NOREPINEPHRINE 8 MG/D5W 250 ML 250 ML ONE (01:32)
[2020-04-05] MEDS: SODIUM CHLORIDE 0.9% 250ML IRRIG IR SCH ×5 (02:00→16:20)
[2020-04-05] MEDS: NOREPINEPHRINE INJ 4MG/4ML 8 MG in DEXTROSE 5% 250ML 250 ML IV PRN (02:00)
[2020-04-05 05:12] LABS: BASOPHILS % 0.1 % (0.0-1.0); EOSINOPHILS % 0.2 % (0.0-6.0); HEMATOCRIT 33.6 % (34.2-44.1); HEMOGLOBIN 10.9 g/dL (12.0-16.0); LYMPHOCYTES # (AUTO) 0.7 (1.0-3.2); LYMPHOCYTES % 5.3 % (18.0-39.1); MEAN CORPUSCULAR HEMOGLOBIN 30.7 pg (28-32); MEAN CORPUSCULAR HGB CONC 32.4 g/dL (31-35); MEAN CORPUSCULAR VOLUME 94.6 fL (81-99); MONOCYTES # (AUTO) 0.7 (0.2-0.8); MONOCYTES % 5.4 % (4.4-11.3); NEUTROPHILS # (AUTO) 12.1 (2.1-6.9); NEUTROPHILS % 87.6 % (38.7-80.0); PLATELET COUNT 114 x10e3/uL (140-360); RED BLOOD COUNT 3.55 x10e6/uL (3.6-5.1); RED CELL DISTRIBUTION WIDTH 14.2 % (11.7-14.4)
[2020-04-05 05:42] LABS: ALBUMIN 1.4 g/dL (3.5-5.0); ALBUMIN/GLOBULIN RATIO 0.4 (0.8-2.0); CALCIUM 7.5 mg/dL (8.4-10.2); CREATININE, SERUM 1.34 mg/dL (0.57-1.11)
[2020-04-05] MEDS: ENOXAPARIN INJ 80 MG/0.8 ML SYR SC SCH ×2 (06:37→17:08)
[2020-04-05] MEDS: FENTANYL 2000MCG/NS 250 250 ML IV PRN (07:31)
[2020-04-05] MEDS: CHOLECALCIFEROL 400 UNIT TAB PO SCH (08:17)
[2020-04-05] MEDS: ZINC SULFATE 50 MG CAP PO SCH (08:17)
[2020-04-05] MEDS: MEROPENEM 500MG/ NS 50ML 50 ML IV SCH ×2 (08:17→21:18)
[2020-04-05] MEDS: SODIUM CHLORIDE 1 GM TAB PO SCH ×2 (08:17→16:20)
[2020-04-05] MEDS: EYE LUBRICANT OPTH OINT 3.5GM TUBE OP SCH (08:17)
[2020-04-05] MEDS: ASCORBIC ACID 500 MG TAB PO SCH (08:17)
[2020-04-05] MEDS: FAMOTIDINE 20 MG TAB PO SCH ×2 (08:17→16:20)
[2020-04-05] MEDS: AMLODIPINE BESYLATE 5 MG TAB PO SCH (08:17)
[2020-04-05 10:21] LABS: PLATELET MORPHOLOGY COMMENT NORMAL
[2020-04-05 17:34] LABS: ABG HCO3 23 mmol/L (22-26); ABG PCO2 40 mmHg (35-45); ABG PH 7.36 (7.35-7.45); ABG PO2 67 mmHg (80-105); ABG TCO2 24
[2020-04-05] MEDS: INSULIN REGULAR, HUMAN 3ML VL 100 UNIT in SODIUM CHLORIDE 0.9% 100 ML 99 ML IV SCH ×2 (17:50)
[2020-04-05] MEDS: MIDAZOLAM HCL 5MG/ML 10ML VIAL 100 ML IV PRN (18:18)
[2020-04-05] MEDS ORDERED: NOREPINEPHRINE INJ 4MG/4ML 8 MG in DEXTROSE 5% 250ML 250 ML IV PRN (22:30)
[2020-04-06] VITALS (22 sets, daily range): BP systolic 91–114; BP diastolic 44–55
[2020-04-06 05:43] LABS: BASOPHILS % 0.1 % (0.0-1.0); EOSINOPHILS # (AUTO) 0.2 (0.0-0.4); EOSINOPHILS % 1.1 % (0.0-6.0); HEMATOCRIT 36.1 % (34.2-44.1); HEMOGLOBIN 11.4 g/dL (12.0-16.0); LYMPHOCYTES # (AUTO) 0.8 (1.0-3.2); LYMPHOCYTES % 6.2 % (18.0-39.1); MEAN CORPUSCULAR HGB CONC 31.6 g/dL (31-35); MONOCYTES # (AUTO) 0.6 (0.2-0.8); MONOCYTES % 4.1 % (4.4-11.3); NEUTROPHILS # (AUTO) 11.7 (2.1-6.9); PLATELET COUNT 118 x10e3/uL (140-360); RED CELL DISTRIBUTION WIDTH 14.7 % (11.7-14.4)
[2020-04-06 05:53] LABS: ALBUMIN 1.4 g/dL (3.5-5.0); ALBUMIN/GLOBULIN RATIO 0.4 (0.8-2.0); ANION GAP 14.2 mmol/L (8-16); CALCIUM 8.1 mg/dL (8.4-10.2); POTASSIUM 5.2 mmol/L (3.5-5.1)
[2020-04-06] MEDS: ENOXAPARIN INJ 80 MG/0.8 ML SYR SC SCH ×2 (06:44→17:44)
[2020-04-06] MEDS: FAMOTIDINE 20 MG TAB PO SCH ×2 (08:30→17:44)
[2020-04-06] MEDS: ZINC SULFATE 50 MG CAP PO SCH (08:53)
[2020-04-06] MEDS: CHOLECALCIFEROL 400 UNIT TAB PO SCH (08:53)
[2020-04-06] MEDS: EYE LUBRICANT OPTH OINT 3.5GM TUBE OP SCH (08:53)
[2020-04-06] MEDS: MEROPENEM 500MG/ NS 50ML 50 ML IV SCH ×2 (08:53→21:30)
[2020-04-06] MEDS: AMLODIPINE BESYLATE 5 MG TAB PO SCH (08:53)
[2020-04-06] MEDS: SODIUM CHLORIDE 1 GM TAB PO SCH ×2 (08:53→17:44)
[2020-04-06] MEDS: MIDAZOLAM HCL 5MG/ML 10ML VIAL 100 ML IV PRN ×4 (08:53→23:30)
[2020-04-06] MEDS: ASCORBIC ACID 500 MG TAB PO SCH (08:53)
[2020-04-06] MEDS: FENTANYL 2000MCG/NS 250 250 ML IV PRN (11:25)
[2020-04-06 13:08] LABS: ABG HCO3 23 mmol/L (22-26); ABG PCO2 47 mmHg (35-45); ABG PH 7.31 (7.35-7.45); ABG PO2 51 mmHg (80-105); ABG TCO2 25
[2020-04-06] MEDS: INSULIN REGULAR, HUMAN 3ML VL 100 UNIT in SODIUM CHLORIDE 0.9% 100 ML 99 ML IV SCH ×2 (22:15)
[2020-04-06 23:39] LABS: ALBUMIN 1.2 g/dL (3.5-5.0); ALBUMIN/GLOBULIN RATIO 0.3 (0.8-2.0); ANION GAP 10.5 mmol/L (8-16); CALCIUM 7.6 mg/dL (8.4-10.2); CREATININE, SERUM 0.99 mg/dL (0.57-1.11); MAGNESIUM 2.9 MG/DL (1.3-2.1); PHOSPHORUS 3.3 MG/DL (2.3-4.7); POTASSIUM 5.5 mmol/L (3.5-5.1)
[2020-04-06 23:40] LABS: ABG PH 7.23 (7.35-7.45)
[2020-04-06 23:41] LABS: ABG HCO3 25 mmol/L (22-26); ABG PCO2 61 mmHg (35-45); ABG PO2 53 mmHg (80-105); ABG TCO2 27
[2020-04-07] VITALS (25 sets, daily range): BP systolic 92–141; BP diastolic 38–70
[2020-04-07 01:15] LABS: ABG HCO3 25 mmol/L (22-26); ABG PCO2 57 mmHg (35-45); ABG PH 7.25 (7.35-7.45); ABG PO2 58 mmHg (80-105); ABG TCO2 27
[2020-04-07] MEDS ORDERED: SOD POLYSTYRENE SULFONATE SUSP 15 GM/60 ML BTL PO ONE (01:15)
[2020-04-07] MEDS: FENTANYL 2000MCG/NS 250 250 ML IV PRN ×4 (01:15→23:30)
[2020-04-07] MEDS: ENOXAPARIN INJ 80 MG/0.8 ML SYR SC SCH ×2 (05:45→17:43)
[2020-04-07] MEDS: MIDAZOLAM HCL 5MG/ML 10ML VIAL 100 ML IV PRN ×4 (05:45→23:30)
[2020-04-07] MEDS ORDERED: SOD POLYSTYRENE SULFONATE SUSP 15 GM/60 ML BTL PR ONE (06:15)
[2020-04-07 06:57] LABS: ANION GAP 10.9 mmol/L (8-16); BLOOD UREA NITROGEN 54 mg/dL (7-26); BUN/CREATININE RATIO 61 (6-25); CALCIUM 7.6 mg/dL (8.4-10.2); CARBON DIOXIDE 28 mmol/L (22-29); CHLORIDE 111 mmol/L (98-107); CREATININE, SERUM 0.88 mg/dL (0.57-1.11); EST GLOMERULAR FILTRATION RATE > 60 ML/MIN (60-); GLUCOSE 232 mg/dL (74-118); POTASSIUM 4.9 mmol/L (3.5-5.1); SODIUM 145 mmol/L (136-145)
[2020-04-07 07:55] LABS: BASOPHILS % 0.3 % (0.0-1.0); EOSINOPHILS # (AUTO) 0.2 (0.0-0.4); EOSINOPHILS % 1.3 % (0.0-6.0); HEMATOCRIT 32.8 % (34.2-44.1); HEMOGLOBIN 10.2 g/dL (12.0-16.0); LYMPHOCYTES # (AUTO) 0.8 (1.0-3.2); LYMPHOCYTES % 6.2 % (18.0-39.1); MEAN CORPUSCULAR HEMOGLOBIN 30.8 pg (28-32); MEAN CORPUSCULAR HGB CONC 31.1 g/dL (31-35); MEAN CORPUSCULAR VOLUME 99.1 fL (81-99); MONOCYTES # (AUTO) 0.5 (0.2-0.8); NEUTROPHILS # (AUTO) 11.1 (2.1-6.9); NEUTROPHILS % 86.5 % (38.7-80.0); PLATELET COUNT 148 x10e3/uL (140-360); RED BLOOD COUNT 3.31 x10e6/uL (3.6-5.1); RED CELL DISTRIBUTION WIDTH 15.3 % (11.7-14.4)
[2020-04-07] MEDS: AMLODIPINE BESYLATE 5 MG TAB PO SCH (08:38)
[2020-04-07] MEDS: SODIUM CHLORIDE 1 GM TAB PO SCH ×2 (08:38→17:41)
[2020-04-07] MEDS: MEROPENEM 500MG/ NS 50ML 50 ML IV SCH ×2 (08:38→22:30)
[2020-04-07] MEDS: CHOLECALCIFEROL 400 UNIT TAB PO SCH (08:38)
[2020-04-07] MEDS: FAMOTIDINE 20 MG TAB PO SCH ×2 (08:38→17:41)
[2020-04-07] MEDS: EYE LUBRICANT OPTH OINT 3.5GM TUBE OP SCH (08:38)
[2020-04-07] MEDS: ASCORBIC ACID 500 MG TAB PO SCH (08:38)
[2020-04-07] MEDS: ZINC SULFATE 50 MG CAP PO SCH (08:38)
[2020-04-07] MEDS ORDERED: ONDANSETRON HCL 4 MG ORAL DISINTEGRATING TAB PO PRN (08:45)
[2020-04-07 09:24] LABS: ABG HCO3 29 mmol/L (22-26); ABG PCO2 51 mmHg (35-45); ABG PH 7.35 (7.35-7.45); ABG PO2 82 mmHg (80-105); ABG TCO2 30
[2020-04-07] MEDS ORDERED: ALBUMIN 25% 25GM 100ML 0.25 GM/ML BTL IV SCH (17:30)
[2020-04-07] MEDS: NOREPINEPHRINE 8 MG/D5W 250 ML 250 ML IV PRN (17:41)
[2020-04-07] MEDS: ALBUMIN 25% 25GM 100ML 100 ML IV SCH (18:08)
[2020-04-07] MEDS: FUROSEMIDE INJ 10 MG/ML 4 ML VIAL IV SCH (18:08)
[2020-04-08] VITALS (24 sets, daily range): BP systolic 107–166; BP diastolic 34–60
[2020-04-08] MEDS: ALBUMIN 25% 25GM 100ML 100 ML IV SCH ×2 (02:15→08:12)
[2020-04-08] MEDS: NOREPINEPHRINE 8 MG/D5W 250 ML 250 ML IV PRN (04:20)
[2020-04-08 05:18] LABS: BASOPHILS % 0.3 % (0.0-1.0); EOSINOPHILS # (AUTO) 0.3 (0.0-0.4); EOSINOPHILS % 2.8 % (0.0-6.0); HEMATOCRIT 28.3 % (34.2-44.1); HEMOGLOBIN 8.6 g/dL (12.0-16.0); LYMPHOCYTES # (AUTO) 0.8 (1.0-3.2); LYMPHOCYTES % 6.7 % (18.0-39.1); MEAN CORPUSCULAR HEMOGLOBIN 30.4 pg (28-32); MEAN CORPUSCULAR HGB CONC 30.4 g/dL (31-35); MONOCYTES # (AUTO) 0.4 (0.2-0.8); MONOCYTES % 3.8 % (4.4-11.3); NEUTROPHILS # (AUTO) 9.7 (2.1-6.9); NEUTROPHILS % 84.7 % (38.7-80.0); PLATELET COUNT 109 x10e3/uL (140-360); RED BLOOD COUNT 2.83 x10e6/uL (3.6-5.1); RED CELL DISTRIBUTION WIDTH 15.5 % (11.7-14.4)
[2020-04-08 05:54] LABS: ALANINE AMINOTRANSFERASE 9 IU/L (0-55); ALBUMIN 1.8 g/dL (3.5-5.0); ALBUMIN/GLOBULIN RATIO 0.5 (0.8-2.0); ALKALINE PHOSPHATASE 63 IU/L (40-150); ANION GAP 12.9 mmol/L (8-16); BLOOD UREA NITROGEN 45 mg/dL (7-26); BUN/CREATININE RATIO 52 (6-25); CALCIUM 7.5 mg/dL (8.4-10.2); CARBON DIOXIDE 29 mmol/L (22-29); CHLORIDE 112 mmol/L (98-107); CREATININE, SERUM 0.87 mg/dL (0.57-1.11); EST GLOMERULAR FILTRATION RATE > 60 ML/MIN (60-); GLUCOSE 178 mg/dL (74-118); POTASSIUM 3.9 mmol/L (3.5-5.1); SODIUM 150 mmol/L (136-145)
[2020-04-08] MEDS: FENTANYL 2000MCG/NS 250 250 ML IV PRN ×3 (06:30→20:55)
[2020-04-08] MEDS: ENOXAPARIN INJ 80 MG/0.8 ML SYR SC SCH ×2 (06:30→16:49)
[2020-04-08] MEDS: FUROSEMIDE INJ 10 MG/ML 4 ML VIAL IV SCH (06:30)
[2020-04-08] MEDS: INSULIN REGULAR, HUMAN 3ML VL 100 UNIT in SODIUM CHLORIDE 0.9% 100 ML 99 ML IV SCH ×2 (06:45)
[2020-04-08] MEDS: FAMOTIDINE 20 MG TAB PO SCH ×2 (08:10→16:49)
[2020-04-08] MEDS: EYE LUBRICANT OPTH OINT 3.5GM TUBE OP SCH (08:10)
[2020-04-08] MEDS: MEROPENEM 500MG/ NS 50ML 50 ML IV SCH ×2 (08:10→20:55)
[2020-04-08] MEDS: AMLODIPINE BESYLATE 5 MG TAB PO SCH (08:10)
[2020-04-08] MEDS: CHOLECALCIFEROL 400 UNIT TAB PO SCH (08:11)
[2020-04-08] MEDS: ZINC SULFATE 50 MG CAP PO SCH (08:11)
[2020-04-08] MEDS: ASCORBIC ACID 500 MG TAB PO SCH (08:11)
[2020-04-08] MEDS: SODIUM CHLORIDE 1 GM TAB PO SCH (08:11)
[2020-04-08 08:28] LABS: BAND NEUTROPHILS % (MANUAL) 13 %; EOSINOPHILS % (MANUAL) 5 % (0-7); LYMPHOCYTES % (MANUAL) 3 % (19-48); MONOCYTES % (MANUAL) 1 % (3.4-9.0); NEUTROPHILS % (MANUAL) 78 % (40-74); NUCLEATED RED BLOOD CELLS 1
[2020-04-08 08:29] LABS: PLATELET ESTIMATE SLIGHTLY DECREASED; PLATELET MORPHOLOGY COMMENT NORMAL; RBC MORPHOLOGY COMMENT NORMAL
[2020-04-08 08:38] LABS: ABG HCO3 30 mmol/L (22-26); ABG PCO2 48 mmHg (35-45); ABG PO2 66 mmHg (80-105)
[2020-04-08 08:39] LABS: ABG TCO2 31
[2020-04-08] MEDS: MIDAZOLAM HCL 5MG/ML 10ML VIAL 100 ML IV PRN ×2 (15:39→20:55)
[2020-04-09] VITALS (24 sets, daily range): BP systolic 106–161; BP diastolic 35–52
[2020-04-09] MEDS: MIDAZOLAM HCL 5MG/ML 10ML VIAL 100 ML IV PRN ×5 (02:20→21:00)
[2020-04-09] MEDS: FENTANYL 2000MCG/NS 250 250 ML IV PRN ×2 (03:45→16:53)
[2020-04-09 05:19] LABS: BASOPHILS % 0.2 % (0.0-1.0); EOSINOPHILS # (AUTO) 0.1 (0.0-0.4); EOSINOPHILS % 0.9 % (0.0-6.0); HEMATOCRIT 25.5 % (34.2-44.1); HEMOGLOBIN 7.8 g/dL (12.0-16.0); LYMPHOCYTES # (AUTO) 0.7 (1.0-3.2); LYMPHOCYTES % 5.5 % (18.0-39.1); MEAN CORPUSCULAR HEMOGLOBIN 30.7 pg (28-32); MEAN CORPUSCULAR HGB CONC 30.6 g/dL (31-35); MEAN CORPUSCULAR VOLUME 100.4 fL (81-99); MONOCYTES # (AUTO) 0.6 (0.2-0.8); NEUTROPHILS # (AUTO) 10.9 (2.1-6.9); NEUTROPHILS % 87.3 % (38.7-80.0); PLATELET COUNT 108 x10e3/uL (140-360); RED BLOOD COUNT 2.54 x10e6/uL (3.6-5.1); RED CELL DISTRIBUTION WIDTH 15.6 % (11.7-14.4)
[2020-04-09 05:58] LABS: ALANINE AMINOTRANSFERASE 9 IU/L (0-55); ALBUMIN 2.1 g/dL (3.5-5.0); ALBUMIN/GLOBULIN RATIO 0.7 (0.8-2.0); ALKALINE PHOSPHATASE 78 IU/L (40-150); ANION GAP 11.4 mmol/L (8-16); BLOOD UREA NITROGEN 37 mg/dL (7-26); BUN/CREATININE RATIO 46 (6-25); CALCIUM 7.8 mg/dL (8.4-10.2); CARBON DIOXIDE 31 mmol/L (22-29); CHLORIDE 111 mmol/L (98-107); CREATININE, SERUM 0.81 mg/dL (0.57-1.11); EST GLOMERULAR FILTRATION RATE > 60 ML/MIN (60-); GLUCOSE 277 mg/dL (74-118); POTASSIUM 4.4 mmol/L (3.5-5.1); SODIUM 149 mmol/L (136-145)
[2020-04-09] MEDS: ENOXAPARIN INJ 80 MG/0.8 ML SYR SC SCH (06:20)
[2020-04-09] MEDS: ZINC SULFATE 50 MG CAP PO SCH (08:17)
[2020-04-09] MEDS: EYE LUBRICANT OPTH OINT 3.5GM TUBE OP SCH (08:17)
[2020-04-09] MEDS: ASCORBIC ACID 500 MG TAB PO SCH (08:17)
[2020-04-09] MEDS: CHOLECALCIFEROL 400 UNIT TAB PO SCH (08:17)
[2020-04-09] MEDS: FAMOTIDINE 20 MG TAB PO SCH ×2 (08:17→16:16)
[2020-04-09] MEDS: MEROPENEM 500MG/ NS 50ML 50 ML IV SCH ×2 (08:17→23:00)
[2020-04-09 10:00] LABS: ABG HCO3 30 mmol/L (22-26); ABG PCO2 50 mmHg (35-45); ABG PH 7.39 (7.35-7.45); ABG PO2 50 mmHg (80-105); ABG TCO2 31
[2020-04-09 11:45] LABS: INR 1.31; PROTHROMBIN TIME 17.2 seconds (11.9-14.5)
[2020-04-09 11:57] LABS: IRON 21 ug/dL (50-170); TRANSFERRIN < 70 mg/dL (180-382)
[2020-04-09 12:07] LABS: FERRITIN 1102.99 ng/mL (4.63-204.00)
[2020-04-09 13:34] LABS: LACTATE DEHYDROGENASE 366 IU/L (125-220)
[2020-04-09] MEDS: INSULIN REGULAR, HUMAN 3ML VL 100 UNIT in SODIUM CHLORIDE 0.9% 100 ML 99 ML IV SCH ×2 (20:02)
[2020-04-10] VITALS (26 sets, daily range): BP systolic 105–149; BP diastolic 35–58
[2020-04-10] MEDS: FENTANYL 2000MCG/NS 250 250 ML IV PRN ×4 (00:30→22:30)
[2020-04-10 05:14] LABS: BASOPHILS % 0.2 % (0.0-1.0); EOSINOPHILS # (AUTO) 0.3 (0.0-0.4); EOSINOPHILS % 3.2 % (0.0-6.0); HEMATOCRIT 26.8 % (34.2-44.1); HEMOGLOBIN 7.9 g/dL (12.0-16.0); LYMPHOCYTES # (AUTO) 0.7 (1.0-3.2); LYMPHOCYTES % 6.1 % (18.0-39.1); MEAN CORPUSCULAR HEMOGLOBIN 29.6 pg (28-32); MEAN CORPUSCULAR HGB CONC 29.5 g/dL (31-35); MEAN CORPUSCULAR VOLUME 100.4 fL (81-99); MONOCYTES # (AUTO) 0.5 (0.2-0.8); MONOCYTES % 4.5 % (4.4-11.3); NEUTROPHILS # (AUTO) 9.1 (2.1-6.9); NEUTROPHILS % 84.7 % (38.7-80.0); PLATELET COUNT 96 x10e3/uL (140-360); RED BLOOD COUNT 2.67 x10e6/uL (3.6-5.1); RED CELL DISTRIBUTION WIDTH 16.3 % (11.7-14.4)
[2020-04-10 06:13] LABS: ALANINE AMINOTRANSFERASE 6 IU/L (0-55); ALBUMIN 1.7 g/dL (3.5-5.0); ALBUMIN/GLOBULIN RATIO 0.5 (0.8-2.0); ALKALINE PHOSPHATASE 79 IU/L (40-150); ANION GAP 9.3 mmol/L (8-16); BLOOD UREA NITROGEN 30 mg/dL (7-26); BUN/CREATININE RATIO 44 (6-25); CALCIUM 8.1 mg/dL (8.4-10.2); CARBON DIOXIDE 33 mmol/L (22-29); CHLORIDE 114 mmol/L (98-107); CREATININE, SERUM 0.68 mg/dL (0.57-1.11); EST GLOMERULAR FILTRATION RATE > 60 ML/MIN (60-); GLUCOSE 173 mg/dL (74-118); POTASSIUM 4.3 mmol/L (3.5-5.1); SODIUM 152 mmol/L (136-145)
[2020-04-10] MEDS: MIDAZOLAM HCL 5MG/ML 10ML VIAL 100 ML IV PRN ×4 (08:11→22:32)
[2020-04-10] MEDS: ASCORBIC ACID 500 MG TAB PO SCH (08:47)
[2020-04-10] MEDS: CHOLECALCIFEROL 400 UNIT TAB PO SCH (08:47)
[2020-04-10] MEDS: ZINC SULFATE 50 MG CAP PO SCH (08:47)
[2020-04-10] MEDS: EYE LUBRICANT OPTH OINT 3.5GM TUBE OP SCH (08:47)
[2020-04-10] MEDS: MEROPENEM 500MG/ NS 50ML 50 ML IV SCH ×2 (08:47→20:30)
[2020-04-10] MEDS: FAMOTIDINE 20 MG TAB PO SCH ×2 (08:47→16:36)
[2020-04-10 11:21] LABS: ABG HCO3 32 mmol/L (22-26); ABG PCO2 52 mmHg (35-45); ABG PO2 43 mmHg (80-105); ABG TCO2 33
[2020-04-10] MEDS ORDERED: ALBUTEROL SULF 0.083% NEB SOLN 3 ML NEB NEB PRN (11:30)
[2020-04-10] MEDS: ENOXAPARIN INJ 80 MG/0.8 ML SYR SC SCH ×2 (11:57→20:30)
[2020-04-10] MEDS ORDERED: METHYLPREDNISOLONE SOD SUCC 125 MG/2ML VIAL IV ONE (12:00)
[2020-04-10] MEDS ORDERED: DEXTROSE 5% 1,000 ML IV ONE (15:45)
[2020-04-10] MEDS ORDERED: FUROSEMIDE INJ 10 MG/ML 4 ML VIAL IV ONE (16:45)
[2020-04-10] MEDS: NOREPINEPHRINE INJ 4MG/4ML 8 MG in DEXTROSE 5% 250ML 250 ML IV PRN (20:30)
[2020-04-11] VITALS (25 sets, daily range): BP systolic 110–159; BP diastolic 33–49
[2020-04-11] MEDS: MIDAZOLAM HCL 5MG/ML 10ML VIAL 100 ML IV PRN ×5 (02:39→23:14)
[2020-04-11 04:46] LABS: BASOPHILS % 0.2 % (0.0-1.0); EOSINOPHILS % 0.1 % (0.0-6.0); HEMATOCRIT 28.5 % (34.2-44.1); HEMOGLOBIN 8.6 g/dL (12.0-16.0); LYMPHOCYTES # (AUTO) 0.5 (1.0-3.2); LYMPHOCYTES % 3.5 % (18.0-39.1); MEAN CORPUSCULAR HEMOGLOBIN 31.5 pg (28-32); MEAN CORPUSCULAR HGB CONC 30.2 g/dL (31-35); MEAN CORPUSCULAR VOLUME 104.4 fL (81-99); MONOCYTES # (AUTO) 0.3 (0.2-0.8); MONOCYTES % 2.4 % (4.4-11.3); NEUTROPHILS % 92.4 % (38.7-80.0); PLATELET COUNT 124 x10e3/uL (140-360); RED BLOOD COUNT 2.73 x10e6/uL (3.6-5.1); RED CELL DISTRIBUTION WIDTH 16.3 % (11.7-14.4)
[2020-04-11 05:05] LABS: ALBUMIN 1.7 g/dL (3.5-5.0); ALBUMIN/GLOBULIN RATIO 0.4 (0.8-2.0); ANION GAP 10.9 mmol/L (8-16); CALCIUM 8.2 mg/dL (8.4-10.2); CREATININE, SERUM 0.92 mg/dL (0.57-1.11); POTASSIUM 4.9 mmol/L (3.5-5.1)
[2020-04-11] MEDS: ZINC SULFATE 50 MG CAP PO SCH (08:38)
[2020-04-11] MEDS: FAMOTIDINE 20 MG TAB PO SCH ×2 (08:38→16:39)
[2020-04-11] MEDS: EYE LUBRICANT OPTH OINT 3.5GM TUBE OP SCH (08:38)
[2020-04-11] MEDS: CHOLECALCIFEROL 400 UNIT TAB PO SCH (08:38)
[2020-04-11] MEDS: HYDROCHLOROTHIAZIDE 25 MG TAB PO SCH (08:38)
[2020-04-11] MEDS: ASCORBIC ACID 500 MG TAB PO SCH (08:38)
[2020-04-11] MEDS: MEROPENEM 500MG/ NS 50ML 50 ML IV SCH ×3 (08:38→22:27)
[2020-04-11] MEDS: ENOXAPARIN INJ 80 MG/0.8 ML SYR SC SCH ×3 (08:38→22:27)
[2020-04-11] MEDS: ACETAMINOPHEN 325 MG TAB PO PRN (08:52)
[2020-04-11] MEDS: NOREPINEPHRINE INJ 4MG/4ML 8 MG in DEXTROSE 5% 250ML 250 ML IV PRN (09:53)
[2020-04-11] MEDS: FENTANYL 2000MCG/NS 250 250 ML IV PRN ×2 (11:32→18:22)
[2020-04-11] MEDS ORDERED: FUROSEMIDE INJ 10 MG/ML 4 ML VIAL IV ONE (18:30)
[2020-04-12] VITALS (33 sets, daily range): BP systolic 93–153; BP diastolic 32–53
[2020-04-12] MEDS: FENTANYL 2000MCG/NS 250 250 ML IV PRN ×3 (01:23→17:09)
[2020-04-12] MEDS ORDERED: INSULIN REGULAR, HUMAN 100 UNIT/1 ML 3ML VIAL ONE (05:29)
[2020-04-12] MEDS ORDERED: SODIUM CHLORIDE 0.9% 100 ML ONE (05:30)
[2020-04-12] MEDS: MIDAZOLAM HCL 5MG/ML 10ML VIAL 100 ML IV PRN ×3 (05:56→18:45)
[2020-04-12 06:00] LABS: BASOPHILS % 0.3 % (0.0-1.0); HEMATOCRIT 28.8 % (34.2-44.1); HEMOGLOBIN 8.6 g/dL (12.0-16.0); LYMPHOCYTES # (AUTO) 0.9 (1.0-3.2); LYMPHOCYTES % 6.2 % (18.0-39.1); MEAN CORPUSCULAR HEMOGLOBIN 30.5 pg (28-32); MEAN CORPUSCULAR HGB CONC 29.9 g/dL (31-35); MEAN CORPUSCULAR VOLUME 102.1 fL (81-99); MONOCYTES # (AUTO) 0.7 (0.2-0.8); MONOCYTES % 4.4 % (4.4-11.3); NEUTROPHILS % 87.7 % (38.7-80.0); PLATELET COUNT 122 x10e3/uL (140-360); RED BLOOD COUNT 2.82 x10e6/uL (3.6-5.1); RED CELL DISTRIBUTION WIDTH 16.6 % (11.7-14.4)
[2020-04-12 06:36] LABS: ALANINE AMINOTRANSFERASE 11 IU/L (0-55); ALBUMIN 1.6 g/dL (3.5-5.0); ALBUMIN/GLOBULIN RATIO 0.4 (0.8-2.0); ALKALINE PHOSPHATASE 98 IU/L (40-150); ANION GAP 9.6 mmol/L (8-16); BLOOD UREA NITROGEN 51 mg/dL (7-26); BUN/CREATININE RATIO 59 (6-25); CALCIUM 7.9 mg/dL (8.4-10.2); CARBON DIOXIDE 32 mmol/L (22-29); CHLORIDE 108 mmol/L (98-107); CREATININE, SERUM 0.87 mg/dL (0.57-1.11); EST GLOMERULAR FILTRATION RATE > 60 ML/MIN (60-); GLUCOSE 177 mg/dL (74-118); POTASSIUM 4.6 mmol/L (3.5-5.1); SODIUM 145 mmol/L (136-145)
[2020-04-12 07:06] LABS: ABG HCO3 33 mmol/L (22-26); ABG PCO2 51 mmHg (35-45); ABG PH 7.42 (7.35-7.45); ABG PO2 52 mmHg (80-105); ABG TCO2 35
[2020-04-12] MEDS: HYDROCHLOROTHIAZIDE 25 MG TAB PO SCH (07:58)
[2020-04-12] MEDS: ENOXAPARIN INJ 80 MG/0.8 ML SYR SC SCH ×2 (07:58→21:11)
[2020-04-12] MEDS: MEROPENEM 500MG/ NS 50ML 50 ML IV SCH ×2 (07:58→21:11)
[2020-04-12] MEDS: ASCORBIC ACID 500 MG TAB PO SCH (07:58)
[2020-04-12] MEDS: CHOLECALCIFEROL 400 UNIT TAB PO SCH (07:58)
[2020-04-12] MEDS: ZINC SULFATE 50 MG CAP PO SCH (07:58)
[2020-04-12] MEDS: EYE LUBRICANT OPTH OINT 3.5GM TUBE OP SCH (07:58)
[2020-04-12] MEDS: FAMOTIDINE 20 MG TAB PO SCH ×2 (07:58→17:07)
[2020-04-12] MEDS: METOCLOPRAMIDE HCL 10 MG/2ML VIAL IV SCH (17:07)
[2020-04-12] MEDS: NOREPINEPHRINE INJ 4MG/4ML 8 MG in DEXTROSE 5% 250ML 250 ML IV PRN (18:45)
[2020-04-12] MEDS ORDERED: HEPARIN SOD/SOD CHLORIDE 1,000 ML ONE (23:53)
[2020-04-13] VITALS (25 sets, daily range): BP systolic 106–155; BP diastolic 40–85
[2020-04-13] MEDS: METOCLOPRAMIDE HCL 10 MG/2ML VIAL IV SCH ×4 (00:45→17:41)
[2020-04-13] MEDS: FENTANYL 2000MCG/NS 250 250 ML IV PRN ×4 (01:25→17:43)
[2020-04-13] MEDS: MIDAZOLAM HCL 5MG/ML 10ML VIAL 100 ML IV PRN ×3 (01:30→12:23)
[2020-04-13] MEDS: INSULIN REGULAR, HUMAN 3ML VL 100 UNIT in SODIUM CHLORIDE 0.9% 100 ML 99 ML IV SCH ×2 (05:10)
[2020-04-13 05:34] LABS: BASOPHILS % 0.2 % (0.0-1.0); EOSINOPHILS # (AUTO) 0.2 (0.0-0.4); HEMATOCRIT 27.9 % (34.2-44.1); HEMOGLOBIN 8.6 g/dL (12.0-16.0); LYMPHOCYTES # (AUTO) 0.9 (1.0-3.2); LYMPHOCYTES % 5.7 % (18.0-39.1); MEAN CORPUSCULAR HEMOGLOBIN 30.9 pg (28-32); MEAN CORPUSCULAR HGB CONC 30.8 g/dL (31-35); MEAN CORPUSCULAR VOLUME 100.4 fL (81-99); MONOCYTES # (AUTO) 0.7 (0.2-0.8); MONOCYTES % 4.4 % (4.4-11.3); NEUTROPHILS % 87.3 % (38.7-80.0); PLATELET COUNT 137 x10e3/uL (140-360); RED BLOOD COUNT 2.78 x10e6/uL (3.6-5.1); RED CELL DISTRIBUTION WIDTH 17.6 % (11.7-14.4)
[2020-04-13 06:24] LABS: ALBUMIN 1.7 g/dL (3.5-5.0); ALBUMIN/GLOBULIN RATIO 0.5 (0.8-2.0); ANION GAP 12.8 mmol/L (8-16); CALCIUM 8.1 mg/dL (8.4-10.2); CREATININE, SERUM 1.03 mg/dL (0.57-1.11); POTASSIUM 4.8 mmol/L (3.5-5.1)
[2020-04-13] MEDS ORDERED: NOREPINEPHRINE 8 MG/D5W 250 ML 250 ML ONE (07:06)
[2020-04-13] MEDS: NOREPINEPHRINE INJ 4MG/4ML 8 MG in DEXTROSE 5% 250ML 250 ML IV PRN (07:13)
[2020-04-13] MEDS: CHOLECALCIFEROL 400 UNIT TAB PO SCH (08:31)
[2020-04-13] MEDS: ZINC SULFATE 50 MG CAP PO SCH (08:31)
[2020-04-13] MEDS: ASCORBIC ACID 500 MG TAB PO SCH (08:31)
[2020-04-13] MEDS: MEROPENEM 500MG/ NS 50ML 50 ML IV SCH ×2 (08:31→20:48)
[2020-04-13] MEDS: FAMOTIDINE 20 MG TAB PO SCH ×2 (08:31→16:26)
[2020-04-13] MEDS: EYE LUBRICANT OPTH OINT 3.5GM TUBE OP SCH (08:31)
[2020-04-13] MEDS: ENOXAPARIN INJ 80 MG/0.8 ML SYR SC SCH ×2 (08:31→20:48)
[2020-04-13] MEDS: HYDROCHLOROTHIAZIDE 25 MG TAB PO SCH (08:31)
[2020-04-13 09:48] LABS: ABG PCO2 52 mmHg (35-45); ABG PH 7.39 (7.35-7.45); ABG PO2 62 mmHg (80-105)
[2020-04-13 09:49] LABS: ABG HCO3 32 mmol/L (22-26); ABG TCO2 33
[2020-04-13] MEDS: FUROSEMIDE INJ 10 MG/ML 4 ML VIAL IV SCH ×2 (14:49→20:47)
[2020-04-13] MEDS: ALBUMIN 25% 25GM 100ML 100 ML IV SCH ×2 (14:49→21:24)
[2020-04-13] MEDS ORDERED: ALBUMIN 25% 25GM 100ML 0.25 GM/ML BTL IV SCH (15:00)
[2020-04-13] MEDS ORDERED: MIDAZOLAM HCL 5MG/ML 10ML VIAL 100 ML IV ONE (23:03)
[2020-04-14] VITALS (23 sets, daily range): BP systolic 118–167; BP diastolic 31–51
[2020-04-14] MEDS: METOCLOPRAMIDE HCL 10 MG/2ML VIAL IV SCH ×4 (01:41→17:06)
[2020-04-14] MEDS: FENTANYL 2000MCG/NS 250 250 ML IV PRN ×4 (02:36→22:34)
[2020-04-14] MEDS ORDERED: FENTANYL 2000MCG/NS 250 250 ML ONE (04:02)
[2020-04-14] MEDS ORDERED: MIDAZOLAM HCL 5MG/ML 10ML VIAL 100 ML IV ONE (04:02)
[2020-04-14 05:25] LABS: BASOPHILS % 0.3 % (0.0-1.0); EOSINOPHILS # (AUTO) 0.4 (0.0-0.4); EOSINOPHILS % 3.3 % (0.0-6.0); HEMATOCRIT 23.8 % (34.2-44.1); HEMOGLOBIN 7.2 g/dL (12.0-16.0); LYMPHOCYTES # (AUTO) 0.7 (1.0-3.2); LYMPHOCYTES % 5.9 % (18.0-39.1); MEAN CORPUSCULAR HEMOGLOBIN 30.4 pg (28-32); MEAN CORPUSCULAR HGB CONC 30.3 g/dL (31-35); MEAN CORPUSCULAR VOLUME 100.4 fL (81-99); MONOCYTES # (AUTO) 0.3 (0.2-0.8); MONOCYTES % 2.6 % (4.4-11.3); NEUTROPHILS # (AUTO) 10.9 (2.1-6.9); NEUTROPHILS % 86.6 % (38.7-80.0); PLATELET COUNT 109 x10e3/uL (140-360); RED BLOOD COUNT 2.37 x10e6/uL (3.6-5.1); RED CELL DISTRIBUTION WIDTH 17.3 % (11.7-14.4)
[2020-04-14 05:50] LABS: ALANINE AMINOTRANSFERASE 9 IU/L (0-55); ALBUMIN 3.2 g/dL (3.5-5.0); ALBUMIN/GLOBULIN RATIO 1.2 (0.8-2.0); ALKALINE PHOSPHATASE 64 IU/L (40-150); ANION GAP 11.8 mmol/L (8-16); BLOOD UREA NITROGEN 52 mg/dL (7-26); BUN/CREATININE RATIO 60 (6-25); CALCIUM 8.6 mg/dL (8.4-10.2); CARBON DIOXIDE 35 mmol/L (22-29); CHLORIDE 103 mmol/L (98-107); CREATININE, SERUM 0.87 mg/dL (0.57-1.11); EST GLOMERULAR FILTRATION RATE > 60 ML/MIN (60-); GLUCOSE 94 mg/dL (74-118); POTASSIUM 3.8 mmol/L (3.5-5.1); SODIUM 146 mmol/L (136-145)
[2020-04-14] MEDS: ALBUMIN 25% 25GM 100ML 100 ML IV SCH (06:32)
[2020-04-14] MEDS: FUROSEMIDE INJ 10 MG/ML 4 ML VIAL IV SCH ×2 (08:11→21:00)
[2020-04-14] MEDS: FAMOTIDINE 20 MG TAB PO SCH ×2 (08:11→17:05)
[2020-04-14] MEDS: ENOXAPARIN INJ 80 MG/0.8 ML SYR SC SCH (08:12)
[2020-04-14] MEDS: ASCORBIC ACID 500 MG TAB PO SCH (08:12)
[2020-04-14] MEDS: MEROPENEM 500MG/ NS 50ML 50 ML IV SCH (08:12)
[2020-04-14] MEDS: ZINC SULFATE 50 MG CAP PO SCH (08:12)
[2020-04-14] MEDS: EYE LUBRICANT OPTH OINT 3.5GM TUBE OP SCH (08:12)
[2020-04-14] MEDS: CHOLECALCIFEROL 400 UNIT TAB PO SCH (08:12)
[2020-04-14] MEDS: BALSAM PERU/CASTOR OIL 60 GM OINT...G. TP SCH (09:34)
[2020-04-14 09:37] LABS: ABG HCO3 37 mmol/L (22-26); ABG PCO2 59 mmHg (35-45); ABG PO2 49 mmHg (80-105); ABG TCO2 38
[2020-04-14] MEDS: MIDAZOLAM HCL 5MG/ML 10ML VIAL 100 ML IV PRN ×2 (10:05→22:33)
[2020-04-14] MEDS ORDERED: SODIUM CHLORIDE 0.9% 250ML 250 ML IV ONE (10:45)
[2020-04-15] VITALS (16 sets, daily range): BP systolic 99–142; BP diastolic 27–46
[2020-04-15] MEDS: METOCLOPRAMIDE HCL 10 MG/2ML VIAL IV SCH ×4 (00:08→17:58)
[2020-04-15 04:51] LABS: BASOPHILS % 0.3 % (0.0-1.0); EOSINOPHILS # (AUTO) 0.3 (0.0-0.4); EOSINOPHILS % 2.2 % (0.0-6.0); HEMOGLOBIN 8.2 g/dL (12.0-16.0); LYMPHOCYTES # (AUTO) 0.7 (1.0-3.2); LYMPHOCYTES % 5.5 % (18.0-39.1); MEAN CORPUSCULAR HEMOGLOBIN 29.6 pg (28-32); MEAN CORPUSCULAR HGB CONC 31.5 g/dL (31-35); MEAN CORPUSCULAR VOLUME 93.9 fL (81-99); MONOCYTES # (AUTO) 0.3 (0.2-0.8); MONOCYTES % 2.3 % (4.4-11.3); NEUTROPHILS # (AUTO) 10.5 (2.1-6.9); NEUTROPHILS % 88.8 % (38.7-80.0); PLATELET COUNT 104 x10e3/uL (140-360); RED BLOOD COUNT 2.77 x10e6/uL (3.6-5.1); RED CELL DISTRIBUTION WIDTH 20.1 % (11.7-14.4)
[2020-04-15 05:14] LABS: ALANINE AMINOTRANSFERASE 7 IU/L (0-55); ALBUMIN 2.2 g/dL (3.5-5.0); ALBUMIN/GLOBULIN RATIO 0.8 (0.8-2.0); ALKALINE PHOSPHATASE 69 IU/L (40-150); ANION GAP 12.6 mmol/L (8-16); BLOOD UREA NITROGEN 49 mg/dL (7-26); BUN/CREATININE RATIO 61 (6-25); CALCIUM 8.1 mg/dL (8.4-10.2); CARBON DIOXIDE 35 mmol/L (22-29); CHLORIDE 101 mmol/L (98-107); EST GLOMERULAR FILTRATION RATE > 60 ML/MIN (60-); GLUCOSE 139 mg/dL (74-118); POTASSIUM 3.6 mmol/L (3.5-5.1); SODIUM 145 mmol/L (136-145)
[2020-04-15] MEDS: FENTANYL 2000MCG/NS 250 250 ML IV PRN ×3 (07:40→23:05)
[2020-04-15] MEDS: MIDAZOLAM HCL 5MG/ML 10ML VIAL 100 ML IV PRN ×3 (07:47→18:17)
[2020-04-15] MEDS: FUROSEMIDE INJ 10 MG/ML 4 ML VIAL IV SCH ×2 (08:46→21:07)
[2020-04-15] MEDS: PANTOPRAZOLE 40 MG 10ML VIAL IV SCH ×2 (08:48→17:58)
[2020-04-15] MEDS: ZINC SULFATE 50 MG CAP PO SCH (08:49)
[2020-04-15] MEDS: CHOLECALCIFEROL 400 UNIT TAB PO SCH (08:49)
[2020-04-15] MEDS: ASCORBIC ACID 500 MG TAB PO SCH (08:49)
[2020-04-15] MEDS: EYE LUBRICANT OPTH OINT 3.5GM TUBE OP SCH (08:49)
[2020-04-15] MEDS: BALSAM PERU/CASTOR OIL 60 GM OINT...G. TP SCH (08:49)
[2020-04-15 10:07] LABS: ABG HCO3 39 mmol/L (22-26); ABG PCO2 56 mmHg (35-45); ABG PH 7.44 (7.35-7.45); ABG PO2 50 mmHg (80-105); ABG TCO2 40
[2020-04-15] MEDS: ENOXAPARIN SODIUM INJ 100 MG/ML SYR SC SCH ×2 (11:55→21:07)
[2020-04-15] MEDS ORDERED: SODIUM CHLORIDE 0.9% 1000ML 1,000 ML ONE (13:16)
[2020-04-16] VITALS (19 sets, daily range): BP systolic 93–154; BP diastolic 33–56
[2020-04-16] MEDS: MIDAZOLAM HCL 5MG/ML 10ML VIAL 100 ML IV PRN ×3 (00:30→13:34)
[2020-04-16] MEDS: METOCLOPRAMIDE HCL 10 MG/2ML VIAL IV SCH ×4 (00:41→17:01)
[2020-04-16] MEDS ORDERED: VASOPRESSIN 60 UNIT in DEXTROSE 5% 50ML 57 ML IV PRN ×2 (01:00→01:15)
[2020-04-16] MEDS ORDERED: VASOPRESSIN INJ 20 UNIT/ML VIAL ONE (01:05)
[2020-04-16] MEDS ORDERED: SODIUM CHLORIDE 0.9% 50ML 50 ML ONE (01:07)
[2020-04-16] MEDS ORDERED: NOREPINEPHRINE 8 MG/D5W 250 ML 250 ML ONE (04:51)
[2020-04-16 06:12] LABS: BASOPHILS # (AUTO) 0.1 (0.0-0.1); BASOPHILS % 0.3 % (0.0-1.0); EOSINOPHILS # (AUTO) 0.4 (0.0-0.4); HEMATOCRIT 31.1 % (34.2-44.1); HEMOGLOBIN 9.6 g/dL (12.0-16.0); LYMPHOCYTES # (AUTO) 0.8 (1.0-3.2); LYMPHOCYTES % 4.5 % (18.0-39.1); MEAN CORPUSCULAR HEMOGLOBIN 30.7 pg (28-32); MEAN CORPUSCULAR HGB CONC 30.9 g/dL (31-35); MEAN CORPUSCULAR VOLUME 99.4 fL (81-99); MONOCYTES # (AUTO) 0.6 (0.2-0.8); MONOCYTES % 3.4 % (4.4-11.3); NEUTROPHILS # (AUTO) 15.4 (2.1-6.9); NEUTROPHILS % 88.4 % (38.7-80.0); PLATELET COUNT 168 x10e3/uL (140-360); RED BLOOD COUNT 3.13 x10e6/uL (3.6-5.1); RED CELL DISTRIBUTION WIDTH 20.1 % (11.7-14.4)
[2020-04-16] MEDS: FENTANYL 2000MCG/NS 250 250 ML IV PRN ×3 (06:30→22:30)
[2020-04-16 06:41] LABS: ALANINE AMINOTRANSFERASE 8 IU/L (0-55); ALBUMIN 2.1 g/dL (3.5-5.0); ALBUMIN/GLOBULIN RATIO 0.6 (0.8-2.0); ALKALINE PHOSPHATASE 100 IU/L (40-150); ANION GAP 14.3 mmol/L (8-16); BLOOD UREA NITROGEN 46 mg/dL (7-26); BUN/CREATININE RATIO 59 (6-25); CALCIUM 8.3 mg/dL (8.4-10.2); CARBON DIOXIDE 38 mmol/L (22-29); CHLORIDE 97 mmol/L (98-107); CREATININE, SERUM 0.78 mg/dL (0.57-1.11); EST GLOMERULAR FILTRATION RATE > 60 ML/MIN (60-); GLUCOSE 179 mg/dL (74-118); POTASSIUM 3.3 mmol/L (3.5-5.1); SODIUM 146 mmol/L (136-145)
[2020-04-16 06:49] LABS: ABG HCO3 41 mmol/L (22-26); ABG PCO2 85 mmHg (35-45); ABG PH 7.29 (7.35-7.45); ABG PO2 35 mmHg (80-105); ABG TCO2 43
[2020-04-16] MEDS: FUROSEMIDE INJ 10 MG/ML 4 ML VIAL IV SCH ×2 (08:43→21:30)
[2020-04-16] MEDS: PANTOPRAZOLE 40 MG 10ML VIAL IV SCH ×2 (08:43→17:01)
[2020-04-16] MEDS: ENOXAPARIN SODIUM INJ 100 MG/ML SYR SC SCH ×2 (08:44→21:30)
[2020-04-16] MEDS: BALSAM PERU/CASTOR OIL 60 GM OINT...G. TP SCH (08:44)
[2020-04-16] MEDS: ZINC SULFATE 50 MG CAP PO SCH (08:44)
[2020-04-16] MEDS: CHOLECALCIFEROL 400 UNIT TAB PO SCH (08:44)
[2020-04-16] MEDS: ASCORBIC ACID 500 MG TAB PO SCH (08:44)
[2020-04-16] MEDS: EYE LUBRICANT OPTH OINT 3.5GM TUBE OP SCH (08:44)
[2020-04-16] MEDS ORDERED: VECURONIUM BROMIDE FOR INJ 20 MG VIAL ONE (16:21)
[2020-04-16] MEDS: ROCURONIUM BROMIDE 1,250 MG in SODIUM CHLORIDE 0.9% 250ML 125 ML IV SCH (17:01)
[2020-04-16] MEDS ORDERED: POTASSIUM CHLORIDE 20MEQ/15ML UDC NG ONE (17:45)
[2020-04-16] MEDS ORDERED: KCL 20 MEQ PACKET/ ORAL SOLN NG ONE (18:30)
[2020-04-17] VITALS (25 sets, daily range): BP systolic 102–148; BP diastolic 40–59
[2020-04-17] MEDS ORDERED: HEPARIN SOD/SOD CHLORIDE 1,000 ML ONE (00:14)
[2020-04-17] MEDS: MIDAZOLAM HCL 5MG/ML 10ML VIAL 100 ML IV PRN ×4 (02:15→18:17)
[2020-04-17] MEDS: FENTANYL 2000MCG/NS 250 250 ML IV PRN ×3 (03:35→18:02)
[2020-04-17 05:44] LABS: ALANINE AMINOTRANSFERASE 13 IU/L (0-55); ALBUMIN 1.9 g/dL (3.5-5.0); ALBUMIN/GLOBULIN RATIO 0.5 (0.8-2.0); ALKALINE PHOSPHATASE 86 IU/L (40-150); ANION GAP 12.2 mmol/L (8-16); BASOPHILS # (AUTO) 0.1 (0.0-0.1); BASOPHILS % 0.4 % (0.0-1.0); BLOOD UREA NITROGEN 44 mg/dL (7-26); BUN/CREATININE RATIO 56 (6-25); CALCIUM 8.2 mg/dL (8.4-10.2); CARBON DIOXIDE 39 mmol/L (22-29); CHLORIDE 99 mmol/L (98-107); CREATININE, SERUM 0.78 mg/dL (0.57-1.11); EOSINOPHILS # (AUTO) 0.1 (0.0-0.4); EOSINOPHILS % 0.8 % (0.0-6.0); EST GLOMERULAR FILTRATION RATE > 60 ML/MIN (60-); GLUCOSE 126 mg/dL (74-118); HEMATOCRIT 28.6 % (34.2-44.1); HEMOGLOBIN 8.8 g/dL (12.0-16.0); LYMPHOCYTES # (AUTO) 1.1 (1.0-3.2); LYMPHOCYTES % 8.7 % (18.0-39.1); MEAN CORPUSCULAR HGB CONC 30.8 g/dL (31-35); MEAN CORPUSCULAR VOLUME 97.6 fL (81-99); MONOCYTES # (AUTO) 0.7 (0.2-0.8); MONOCYTES % 5.3 % (4.4-11.3); NEUTROPHILS # (AUTO) 10.9 (2.1-6.9); NEUTROPHILS % 83.8 % (38.7-80.0); PLATELET COUNT 192 x10e3/uL (140-360); POTASSIUM 3.2 mmol/L (3.5-5.1); RED BLOOD COUNT 2.93 x10e6/uL (3.6-5.1); RED CELL DISTRIBUTION WIDTH 19.8 % (11.7-14.4); SODIUM 147 mmol/L (136-145)
[2020-04-17] MEDS: METOCLOPRAMIDE HCL 10 MG/2ML VIAL IV SCH ×4 (06:30→18:01)
[2020-04-17 07:12] LABS: ABG PCO2 56 mmHg (35-45); ABG PH 7.46 (7.35-7.45); ABG PO2 55 mmHg (80-105)
[2020-04-17 07:13] LABS: ABG HCO3 40 mmol/L (22-26); ABG TCO2 41
[2020-04-17] MEDS: BALSAM PERU/CASTOR OIL 60 GM OINT...G. TP SCH (07:41)
[2020-04-17] MEDS: ROCURONIUM BROMIDE 1,250 MG in SODIUM CHLORIDE 0.9% 250ML 125 ML IV SCH (08:16)
[2020-04-17] MEDS: ASCORBIC ACID 500 MG TAB PO SCH (08:46)
[2020-04-17] MEDS: FUROSEMIDE INJ 10 MG/ML 4 ML VIAL IV SCH ×2 (08:46→21:13)
[2020-04-17] MEDS: CHOLECALCIFEROL 400 UNIT TAB PO SCH (08:46)
[2020-04-17] MEDS: PANTOPRAZOLE 40 MG 10ML VIAL IV SCH ×2 (08:46→16:54)
[2020-04-17] MEDS: ZINC SULFATE 50 MG CAP PO SCH (08:47)
[2020-04-17] MEDS: ENOXAPARIN SODIUM INJ 100 MG/ML SYR SC SCH ×2 (08:47→21:13)
[2020-04-17] MEDS: EYE LUBRICANT OPTH OINT 3.5GM TUBE OP SCH (09:55)
[2020-04-17] MEDS: ACETAMINOPHEN 325 MG TAB PO PRN (13:25)
[2020-04-17] MEDS ORDERED: KCL 20 MEQ PACKET/ ORAL SOLN NG ONE ×2 (13:30→17:00)
[2020-04-17] MEDS: NOREPINEPHRINE INJ 4MG/4ML 8 MG in DEXTROSE 5% 250ML 250 ML IV PRN (15:04)
[2020-04-17] MEDS: INSULIN REGULAR, HUMAN 3ML VL 100 UNIT in SODIUM CHLORIDE 0.9% 100 ML 99 ML IV SCH ×2 (15:30)
[2020-04-17] MEDS ORDERED: POTASSIUM CHLORIDE 20MEQ/15ML UDC NG STA (16:11)
[2020-04-18] VITALS (26 sets, daily range): BP systolic 70–145; BP diastolic 30–68
[2020-04-18] MEDS: METOCLOPRAMIDE HCL 10 MG/2ML VIAL IV SCH ×4 (01:24→17:02)
[2020-04-18] MEDS ORDERED: NOREPINEPHRINE 8 MG/D5W 250 ML 250 ML ONE ×2 (03:12→19:24)
[2020-04-18] MEDS: NOREPINEPHRINE INJ 4MG/4ML 8 MG in DEXTROSE 5% 250ML 250 ML IV PRN ×3 (04:04→14:03)
[2020-04-18] MEDS: MIDAZOLAM HCL 5MG/ML 10ML VIAL 100 ML IV PRN ×3 (04:06→14:36)
[2020-04-18] MEDS: PANTOPRAZOLE 40 MG 10ML VIAL IV SCH ×2 (08:02→16:32)
[2020-04-18] MEDS: BALSAM PERU/CASTOR OIL 60 GM OINT...G. TP SCH (08:02)
[2020-04-18] MEDS: ENOXAPARIN SODIUM INJ 100 MG/ML SYR SC SCH (08:02)
[2020-04-18] MEDS: ASCORBIC ACID 500 MG TAB PO SCH (08:02)
[2020-04-18] MEDS: CHOLECALCIFEROL 400 UNIT TAB PO SCH (08:02)
[2020-04-18] MEDS: FUROSEMIDE INJ 10 MG/ML 4 ML VIAL IV SCH (08:02)
[2020-04-18] MEDS: EYE LUBRICANT OPTH OINT 3.5GM TUBE OP SCH (08:02)
[2020-04-18] MEDS: ZINC SULFATE 50 MG CAP PO SCH (08:02)
[2020-04-18] MEDS: FENTANYL 2000MCG/NS 250 250 ML IV PRN ×2 (08:10→14:37)
[2020-04-18] MEDS: ROCURONIUM BROMIDE 1,250 MG in SODIUM CHLORIDE 0.9% 250ML 125 ML IV SCH (09:27)
[2020-04-18] MEDS ORDERED: POTASSIUM CHLORIDE 20MEQ/100ML 200 ML IV ONE (12:00)
[2020-04-18] MEDS ORDERED: LACTATED RINGER'S 500 ML INJ ONE (12:00)
[2020-04-18] MEDS ORDERED: LACTATED RINGER'S 1,000 ML INJ ONE (17:00)
[2020-04-18 17:08] LABS: BASOPHILS # (AUTO) 0.1 (0.0-0.1); BASOPHILS % 0.4 % (0.0-1.0); EOSINOPHILS # (AUTO) 0.3 (0.0-0.4); EOSINOPHILS % 2.5 % (0.0-6.0); HEMATOCRIT 26.1 % (34.2-44.1); HEMOGLOBIN 7.9 g/dL (12.0-16.0); LYMPHOCYTES # (AUTO) 0.9 (1.0-3.2); LYMPHOCYTES % 6.5 % (18.0-39.1); MEAN CORPUSCULAR HEMOGLOBIN 29.9 pg (28-32); MEAN CORPUSCULAR HGB CONC 30.3 g/dL (31-35); MEAN CORPUSCULAR VOLUME 98.9 fL (81-99); MONOCYTES # (AUTO) 0.9 (0.2-0.8); MONOCYTES % 6.7 % (4.4-11.3); NEUTROPHILS # (AUTO) 11.4 (2.1-6.9); NEUTROPHILS % 82.4 % (38.7-80.0); PLATELET COUNT 280 x10e3/uL (140-360); RED BLOOD COUNT 2.64 x10e6/uL (3.6-5.1); RED CELL DISTRIBUTION WIDTH 19.5 % (11.7-14.4)
[2020-04-18] MEDS ORDERED: SODIUM CHLORIDE 0.9% 250ML 250 ML IV ONE (17:15)
[2020-04-18 17:27] LABS: ANION GAP 14.8 mmol/L (8-16); BLOOD UREA NITROGEN 37 mg/dL (7-26); BUN/CREATININE RATIO 47 (6-25); CALCIUM 7.6 mg/dL (8.4-10.2); CARBON DIOXIDE 33 mmol/L (22-29); CHLORIDE 97 mmol/L (98-107); CREATININE, SERUM 0.79 mg/dL (0.57-1.11); EST GLOMERULAR FILTRATION RATE > 60 ML/MIN (60-); GLUCOSE 232 mg/dL (74-118); MAGNESIUM 1.7 MG/DL (1.3-2.1); PHOSPHORUS 2.7 MG/DL (2.3-4.7); POTASSIUM 4.8 mmol/L (3.5-5.1); SODIUM 140 mmol/L (136-145)
[2020-04-18] MEDS ORDERED: SODIUM CHLORIDE 0.9% 250ML 250 ML ONE (20:25)
[2020-04-18] MEDS ORDERED: FUROSEMIDE INJ 10 MG/ML 2 ML VIAL IV STA (22:46)
[2020-04-18] MEDS ORDERED: FUROSEMIDE INJ 10 MG/ML 2 ML VIAL IV ONE (23:00)
[2020-04-18] MEDS ORDERED: FUROSEMIDE INJ 10 MG/ML 4 ML VIAL ONE (23:05)
[2020-04-19] VITALS (24 sets, daily range): BP systolic 110–135; BP diastolic 36–74
[2020-04-19] MEDS ORDERED: SODIUM CHLORIDE 0.9% 100 ML ONE (00:36)
[2020-04-19] MEDS ORDERED: INSULIN REGULAR, HUMAN 100 UNIT/1 ML 3ML VIAL ONE (00:37)
[2020-04-19] MEDS: METOCLOPRAMIDE HCL 10 MG/2ML VIAL IV SCH ×4 (02:03→17:08)
[2020-04-19] MEDS ORDERED: FUROSEMIDE INJ 10 MG/ML 4 ML VIAL ONE (03:23)
[2020-04-19] MEDS ORDERED: NOREPINEPHRINE 8 MG/D5W 250 ML 250 ML ONE ×2 (04:54→14:02)
[2020-04-19 05:53] LABS: BASOPHILS # (AUTO) 0.1 (0.0-0.1); BASOPHILS % 0.4 % (0.0-1.0); EOSINOPHILS # (AUTO) 0.1 (0.0-0.4); EOSINOPHILS % 0.9 % (0.0-6.0); HEMATOCRIT 34.3 % (34.2-44.1); HEMOGLOBIN 10.6 g/dL (12.0-16.0); LYMPHOCYTES # (AUTO) 0.9 (1.0-3.2); LYMPHOCYTES % 6.4 % (18.0-39.1); MEAN CORPUSCULAR HGB CONC 30.9 g/dL (31-35); MONOCYTES # (AUTO) 0.9 (0.2-0.8); MONOCYTES % 6.5 % (4.4-11.3); NEUTROPHILS # (AUTO) 11.8 (2.1-6.9); NEUTROPHILS % 83.7 % (38.7-80.0); PLATELET COUNT 252 x10e3/uL (140-360); RED BLOOD COUNT 3.65 x10e6/uL (3.6-5.1); RED CELL DISTRIBUTION WIDTH 18.8 % (11.7-14.4)
[2020-04-19 06:21] LABS: ALANINE AMINOTRANSFERASE 9 IU/L (0-55); ALBUMIN 1.6 g/dL (3.5-5.0); ALBUMIN/GLOBULIN RATIO 0.5 (0.8-2.0); ALKALINE PHOSPHATASE 111 IU/L (40-150); ANION GAP 12.5 mmol/L (8-16); BLOOD UREA NITROGEN 42 mg/dL (7-26); BUN/CREATININE RATIO 48 (6-25); CALCIUM 7.5 mg/dL (8.4-10.2); CARBON DIOXIDE 33 mmol/L (22-29); CHLORIDE 95 mmol/L (98-107); CREATININE, SERUM 0.87 mg/dL (0.57-1.11); EST GLOMERULAR FILTRATION RATE > 60 ML/MIN (60-); GLUCOSE 212 mg/dL (74-118); POTASSIUM 4.5 mmol/L (3.5-5.1); SODIUM 136 mmol/L (136-145)
[2020-04-19] MEDS: INSULIN REGULAR, HUMAN 3ML VL 100 UNIT in SODIUM CHLORIDE 0.9% 100 ML 99 ML IV SCH ×2 (07:00)
[2020-04-19] MEDS: PANTOPRAZOLE 40 MG 10ML VIAL IV SCH ×2 (08:35→16:52)
[2020-04-19] MEDS: CHOLECALCIFEROL 400 UNIT TAB PO SCH (08:35)
[2020-04-19] MEDS: ASCORBIC ACID 500 MG TAB PO SCH (08:35)
[2020-04-19] MEDS: ZINC SULFATE 50 MG CAP PO SCH (08:35)
[2020-04-19] MEDS: EYE LUBRICANT OPTH OINT 3.5GM TUBE OP SCH (08:35)
[2020-04-19] MEDS: BALSAM PERU/CASTOR OIL 60 GM OINT...G. TP SCH (08:35)
[2020-04-19] MEDS: ROCURONIUM BROMIDE 1,250 MG in SODIUM CHLORIDE 0.9% 250ML 125 ML IV SCH (09:32)
[2020-04-19] MEDS: NOREPINEPHRINE INJ 4MG/4ML 8 MG in DEXTROSE 5% 250ML 250 ML IV PRN ×2 (09:32→14:01)
[2020-04-19] MEDS: MIDAZOLAM HCL 5MG/ML 10ML VIAL 100 ML IV PRN ×3 (10:20→17:34)
[2020-04-19] MEDS: FENTANYL 2000MCG/NS 250 250 ML IV PRN ×2 (10:25→17:35)
[2020-04-19 10:57] LABS: ABG PCO2 70 mmHg (35-45); ABG PH 7.29 (7.35-7.45); ABG PO2 55 mmHg (80-105)
[2020-04-19 10:58] LABS: ABG HCO3 34 mmol/L (22-26); ABG TCO2 36
[2020-04-20] VITALS (26 sets, daily range): BP systolic 73–140; BP diastolic 26–56
[2020-04-20 05:40] LABS: BASOPHILS # (AUTO) 0.1 (0.0-0.1); BASOPHILS % 0.3 % (0.0-1.0); EOSINOPHILS # (AUTO) 0.3 (0.0-0.4); EOSINOPHILS % 1.4 % (0.0-6.0); HEMATOCRIT 30.2 % (34.2-44.1); HEMOGLOBIN 9.4 g/dL (12.0-16.0); LYMPHOCYTES # (AUTO) 1.1 (1.0-3.2); LYMPHOCYTES % 5.6 % (18.0-39.1); MEAN CORPUSCULAR HEMOGLOBIN 29.8 pg (28-32); MEAN CORPUSCULAR HGB CONC 31.1 g/dL (31-35); MEAN CORPUSCULAR VOLUME 95.9 fL (81-99); MONOCYTES # (AUTO) 1.3 (0.2-0.8); MONOCYTES % 6.6 % (4.4-11.3); NEUTROPHILS # (AUTO) 16.3 (2.1-6.9); NEUTROPHILS % 80.6 % (38.7-80.0); PLATELET COUNT 243 x10e3/uL (140-360); RED BLOOD COUNT 3.15 x10e6/uL (3.6-5.1); RED CELL DISTRIBUTION WIDTH 18.7 % (11.7-14.4)
[2020-04-20] MEDS: METOCLOPRAMIDE HCL 10 MG/2ML VIAL IV SCH ×4 (06:00→17:40)
[2020-04-20 06:02] LABS: ALBUMIN 1.4 g/dL (3.5-5.0); ALBUMIN/GLOBULIN RATIO 0.4 (0.8-2.0); ANION GAP 16.2 mmol/L (8-16); CALCIUM 7.6 mg/dL (8.4-10.2); CREATININE, SERUM 1.43 mg/dL (0.57-1.11); POTASSIUM 5.2 mmol/L (3.5-5.1)
[2020-04-20] MEDS: NOREPINEPHRINE INJ 4MG/4ML 8 MG in DEXTROSE 5% 250ML 250 ML IV PRN ×3 (08:00→21:37)
[2020-04-20] MEDS: BALSAM PERU/CASTOR OIL 60 GM OINT...G. TP SCH (09:00)
[2020-04-20] MEDS: EYE LUBRICANT OPTH OINT 3.5GM TUBE OP SCH (09:00)
[2020-04-20] MEDS: ZINC SULFATE 50 MG CAP PO SCH (09:04)
[2020-04-20] MEDS: ASCORBIC ACID 500 MG TAB PO SCH (09:04)
[2020-04-20] MEDS: PANTOPRAZOLE 40 MG 10ML VIAL IV SCH ×2 (09:04→17:40)
[2020-04-20] MEDS: CHOLECALCIFEROL 400 UNIT TAB PO SCH (09:04)
[2020-04-20 09:39] LABS: ABG HCO3 28 mmol/L (22-26); ABG PCO2 66 mmHg (35-45); ABG PH 7.24 (7.35-7.45); ABG PO2 44 mmHg (80-105); ABG TCO2 30
[2020-04-20] MEDS: MIDAZOLAM HCL 5MG/ML 10ML VIAL 100 ML IV PRN ×3 (10:31→21:14)
[2020-04-20] MEDS ORDERED: HEPARIN 25,000 UNIT 1,300 UNIT in DEXTROSE 5% 250ML 250 ML IV SCH ×2 (11:00→11:15)
[2020-04-20] MEDS: FENTANYL 2000MCG/NS 250 250 ML IV PRN ×2 (13:59→22:23)
[2020-04-20] MEDS: ROCURONIUM BROMIDE 1,250 MG in SODIUM CHLORIDE 0.9% 250ML 125 ML IV SCH (16:30)
[2020-04-20 17:38] LABS: HEMATOCRIT 30.2 % (34.2-44.1); HEMOGLOBIN 9.2 g/dL (12.0-16.0)
[2020-04-20] MEDS ORDERED: SOD POLYSTYRENE SULFONATE SUSP 15 GM/60 ML BTL PO ONE (20:00)
[2020-04-20] MEDS: INSULIN REGULAR, HUMAN 3ML VL 100 UNIT in SODIUM CHLORIDE 0.9% 100 ML 99 ML IV SCH ×2 (20:59)
[2020-04-20] MEDS ORDERED: NOREPINEPHRINE 8 MG/D5W 250 ML 250 ML ONE (21:35)
[2020-04-21] VITALS (14 sets, daily range): BP systolic 126–146; BP diastolic 43–58
[2020-04-21] MEDS: INSULIN REGULAR, HUMAN 3ML VL 100 UNIT in SODIUM CHLORIDE 0.9% 100 ML 99 ML IV SCH ×4 (00:35→04:16)
[2020-04-21] MEDS: METOCLOPRAMIDE HCL 10 MG/2ML VIAL IV SCH ×3 (00:41→12:00)
[2020-04-21] MEDS: NOREPINEPHRINE INJ 4MG/4ML 8 MG in DEXTROSE 5% 250ML 250 ML IV PRN ×3 (02:08→10:38)
[2020-04-21] MEDS ORDERED: NOREPINEPHRINE 8 MG/D5W 250 ML 250 ML ONE ×2 (02:08→06:32)
[2020-04-21] MEDS: MIDAZOLAM HCL 5MG/ML 10ML VIAL 100 ML IV PRN ×2 (02:53→11:10)
[2020-04-21] MEDS: FENTANYL 2000MCG/NS 250 250 ML IV PRN (06:34)
[2020-04-21] MEDS: MEROPENEM 500MG 500 MG in SODIUM CHLORIDE 0.9% 50ML 50 ML IV SCH ×2 (06:51→14:00)
[2020-04-21] MEDS: ASCORBIC ACID 500 MG TAB PO SCH (08:06)
[2020-04-21] MEDS: CHOLECALCIFEROL 400 UNIT TAB PO SCH (08:06)
[2020-04-21] MEDS: ZINC SULFATE 50 MG CAP PO SCH (08:06)
[2020-04-21] MEDS: BALSAM PERU/CASTOR OIL 60 GM OINT...G. TP SCH (08:06)
[2020-04-21] MEDS: EYE LUBRICANT OPTH OINT 3.5GM TUBE OP SCH (08:06)
[2020-04-21] MEDS: PANTOPRAZOLE 40 MG 10ML VIAL IV SCH (08:06)
== END 2020-04-21 17:05 | disposition expired | DRG 207 ==
LOC: ER 10:20 → ERHOLD 11:52 → IMCU 03-26 23:00 → ICU 04-04 18:47
PROVIDERS: ADMIT Internal Medicine; ATTEND Internal Medicine
PROC: 02HV33Z Insertion of Infusion Device into Superior Vena Cava, Percutaneous Approach (ICD-10-PCS; 2020-03-25)
PROC: B548ZZA Ultrasonography of Superior Vena Cava, Guidance (ICD-10-PCS; 2020-03-25)
PROC: XW043E5 Introduction of Remdesivir Anti-infective into Central Vein, Percutaneous Approach, New Technology Group 5 (ICD-10-PCS; 2020-03-25)
PROC: 3E0433Z Introduction of Anti-inflammatory into Central Vein, Percutaneous Approach (ICD-10-PCS; 2020-03-25)
PROC: 5A1955Z Respiratory Ventilation, Greater than 96 Consecutive Hours (ICD-10-PCS; 2020-04-02)
PROC: 0BH17EZ Insertion of Endotracheal Airway into Trachea, Via Natural or Artificial Opening (ICD-10-PCS; 2020-04-02)
PROC: 02HV33Z Insertion of Infusion Device into Superior Vena Cava, Percutaneous Approach (ICD-10-PCS; 2020-04-02)
PROC: B548ZZA Ultrasonography of Superior Vena Cava, Guidance (ICD-10-PCS; 2020-04-02)
PROC: 03HY32Z Insertion of Monitoring Device into Upper Artery, Percutaneous Approach (ICD-10-PCS; 2020-04-03)
PROC: 4A133B1 Monitoring of Arterial Pressure, Peripheral, Percutaneous Approach (ICD-10-PCS; 2020-04-03)
PROC: 4A133J1 Monitoring of Arterial Pulse, Peripheral, Percutaneous Approach (ICD-10-PCS; 2020-04-03)
PROC: 3E043XZ Introduction of Vasopressor into Central Vein, Percutaneous Approach (ICD-10-PCS; 2020-04-03)
PROC: 0W9930Z Drainage of Right Pleural Cavity with Drainage Device, Percutaneous Approach (ICD-10-PCS; principal; 2020-04-04)
PROC: 30243N1 Transfusion of Nonautologous Red Blood Cells into Central Vein, Percutaneous Approach (ICD-10-PCS; 2020-04-14)
PROC: 30243N1 Transfusion of Nonautologous Red Blood Cells into Central Vein, Percutaneous Approach (ICD-10-PCS; 2020-04-18)
DX: U07.1 COVID-19 (principal); I50.31 Acute diastolic (congestive) heart failure; G93.41 Metabolic encephalopathy; R65.21 Severe sepsis with septic shock; A41.9 Sepsis, unspecified organism; J12.82 Pneumonia due to coronavirus disease 2019; J80 Acute respiratory distress syndrome; J69.0 Pneumonitis due to inhalation of food and vomit; E87.2 Acidosis; I47.1 Supraventricular tachycardia; T79.7XXA Traumatic subcutaneous emphysema, initial encounter; E22.2 Syndrome of inappropriate secretion of antidiuretic hormone; N17.9 Acute kidney failure, unspecified; I82.611 Acute embolism and thrombosis of superficial veins of right upper extremity; I82.621 Acute embolism and thrombosis of deep veins of right upper extremity; J93.9 Pneumothorax, unspecified; E87.0 Hyperosmolality and hypernatremia; K92.2 Gastrointestinal hemorrhage, unspecified; E11.9 Type 2 diabetes mellitus without complications; E78.5 Hyperlipidemia, unspecified; I11.0 Hypertensive heart disease with heart failure; E66.9 Obesity, unspecified; J43.8 Other emphysema; D69.6 Thrombocytopenia, unspecified; Z66 Do not resuscitate; D50.0 Iron deficiency anemia secondary to blood loss (chronic); E88.09 Other disorders of plasma-protein metabolism, not elsewhere classified; L89.152 Pressure ulcer of sacral region, stage 2; T45.515A Adverse effect of anticoagulants, initial encounter; Z68.28 Body mass index [BMI] 28.0-28.9, adult
CPT/HCPCS: 36415; 36569; 36600; 71045; 74018; 76705; 80048; 80053; 81001; 82550; 82553; 82607; 82728; 82746; 82805; 82947; 82948; 83010; 83540; 83615; 83735; 83880; 83935; 84100; 84295; 84443; 84466; 84484; 84520; 85014; 85018; 85025; 85045; 85379; 85384; 85610; 85730; 86022; 86850; 86900; 86920; 87040; 87070; 87071; 87205; 93005; 93306; 93970; 94002; 94003; 97139; 99251; 99285; J0330; J0456; J0696; J1100; J1650; J1817; J1940; J2001; J2060; J2185; J2250; J2765; J2930; J3370; J3480; J7030; J7040; J7050; J7070; J7121; J7799; P9016; P9047; U0002